=== PATIENT | female | born 2000 | race Caucasian/White ===

== ENCOUNTER 2022-10-13 01:01 | Observation (INO) | payer MEDICAID, SELFPAY ==
[2022-10-13 00:27] VITALS: BP 111/69; PULSE 82; TEMP 35.7
[2022-10-13 00:47] LABS: Bilirubin Urine NEGATIVE (NEGATIVE); Blood Urine NEGATIVE (NEGATIVE); Clarity Urine CLEAR (CLEAR); Color Urine YELLOW (YELLOW); Glucose Urine UA NEGATIVE (NEGATIVE); Ketones Urine NEGATIVE (NEGATIVE); Leukocyte Esterase Urine TRACE (NEGATIVE); Nitrite Urine NEGATIVE (NEGATIVE); Protein Urine NEGATIVE (NEG/TRACE); Specific Gravity Urine 1.015 (1.005-1.025); pH Urine 6.5 (5.0-9.0)
[2022-10-13 00:52] LABS: Urine Microscopic Indicated YES
[2022-10-13 01:19] LABS: Bacteria Urine TRACE #/HPF (NONE SEEN); Mucus Urine NONE SEEN (NONE SEEN); RBC Urine 0-2 #/HPF (0-2); WBC Urine 0-2 #/HPF (NONE SEEN)
[2022-10-13 01:20] LABS: Cast Seen? NONE SEEN #/LPF (NONE SEEN); Crystals Seen? None Seen #/HPF (None Seen); Squamous Epithelial Cell Urine FEW #/LPF (NONE/RARE); Urine Culture Indicated NO
[2022-10-13 02:52] LABS: Basophils Absolute Auto 0.1 10^3/uL (0.0-0.1); Basophils Percent Auto 0.3 % (0.2-2.0); Eosinophils Absolute Auto 0.1 10^3/uL (0.0-0.7); Eosinophils Percent Auto 0.4 % (0.9-7.0); Hematocrit 29.4 % (36.0-48.0); Hemoglobin 9.9 g/dL (12.0-16.0); Immature Granulocytes Abs Auto 0.28 10^3/uL (0.00-0.03); Immature Granulocytes Pct Auto 1.5 % (0.0-0.5); Lymphocytes Absolute Auto 2.4 10^3/uL (1.2-3.8); Lymphocytes Percent Auto 13.2 % (20.5-60.0); Mean Corpuscular HGB Conc 33.7 g/dL (29.9-35.2); Mean Corpuscular Hemoglobin 27.9 pg (26.7-34.0); Mean Corpuscular Volume 82.8 fL (81.0-99.0); Mean Platelet Volume 9.7 fL (9.5-13.5); Monocytes Absolute Auto 1.3 10^3/uL (0.3-0.8); Monocytes Percent Auto 6.8 % (1.7-12.0); Neutrophils Absolute Auto 14.4 10^3/uL (1.4-6.5); Neutrophils Percent Auto 77.8 % (43.0-75.0); Platelet Count 179 10^3/uL (150-450); Red Blood Count 3.55 10^6/uL (4.20-5.40); White Blood Count 18.5 10^3/uL (4.0-11.0)
[2022-10-13] MEDS: 0.9 % SODIUM CHLORIDE 1,000 ML 125 ML IV (03:01)
[2022-10-13 03:08] VITALS: BP 122/57; PULSE 78
--- NOTE | 2022-10-13 07:42 | W.PC.ACHO ---
Registration Status: ADM BLANKA Primary Language: Preferred Language: Active Medications Generic Name Dose Route Start Last Admin Trade Name Freq PRN Reason Stop Dose Admin Cefazolin Sodium/Dextrose 1 gm 10/13/22 04:45 10/13/22 04:54 Cefazolin Sodium/Dextrose 1 Gm/50 Ml Iv.Soln IV 1 gm Q8H JHOAN Administration Sodium Chloride 1,000 mls @ 125 mls/hr 10/13/22 02:30 10/13/22 03:01 Sodium Chloride 0.9% 1,000 Ml IV 125 mls/hr .Q8H JHOAN Administration IV Insertion/Site Date of IV Line Insertion [ 10/13/22 left Forearm] IV Insertion Time [left 02:45 Forearm]
[2022-10-13 09:40] VITALS: BP 102/60; PULSE 75
--- NOTE | 2022-10-13 10:41 | US_ITS ---
[address] [address] Patient Name: DAREN BYNUM MRN: [id number] date: 2000 Sex: F Assigned Patient Location: [facility] Current Patient Location: [facility] Accession/Order Number: [id number] Exam Date: 10/13/2022 12:15 Report Date: 10/13/2022 13:14 At the request of: FELIX ZULUAGA Procedure: US appendix PROCEDURE: US OB cervical length, US appendix, 10/13/2022 12:15 PM EDT CLINICAL INDICATIONS: Right lower quadrant abdominal pain, third trimester 2 para 1 Expected gestational age: 34 weeks 3 days Expected TABBY: 11/21/2322 COMPARISON: 07/07/2022 TECHNIQUE: Limited right lower quadrant abdominal sonogram, grayscale and color assessment. Limited transabdominal evaluation of and third trimester, transvaginal evaluation of cervix in . FINDINGS: LIMITED TRANSABDOMINAL THIRD TRIMESTER OBSTETRIC SONOGRAM, TRANSVAGINAL EVALUATION OF CERVIX IN : Single living intrauterine identified, cephalic presentation. body, cardiac activity is noted. Heart rate 151 bpm. 4.8 cm transvaginal cervical length, closed. There is no sign of placenta previa. Paracervical varices are considered. These measure up to 1.0 cm. Placenta is not evaluated. No sign of placenta previa is demonstrated. biometry: Not performed. anatomic assessment: Not performed. Amniotic fluid index is not evaluated. RIGHT LOWER QUADRANT SONOGRAM: Targeted imaging was performed in the right lower quadrant with graded compression. Tubular fluid-filled structure typical of acute appendicitis is not demonstrated. Prominent pelvic vascularity is in part related to the or mild pelvic varices. No free fluid. IMPRESSION: 1. Single living intrauterine , cephalic presentation 2. 4.8 cm transvaginal cervical length, closed 3. No sign of placenta previa 4. Prominent paracervical and pelvic vascularity in part related to and/or pelvic varices. 5. No sonographic finding typical of acute appendicitis. No free fluid is evident. Electronically authenticated by: YUDITH CHO Date: 10/13/2022 13:14
--- NOTE | 2022-10-13 10:58 | PM.OBPN ---
OB - PN: Subj Subjective Narrative: , IUP 34w3d , h/o c/section, presented last night with lower abd pain, R>L, sx of UTI improved, no pain this morning FHR R will get an US for appendix, h/o IUGR, gettinh NSTs, next appt at [facility] on 10/16/22. d/c home on keflex. Exam Narrative Exam Narrative: General exam was normal, heart regular rate and rhythm, lungs clear to auscultation. Abdomen soft, nontender, Uterus is soft, nontender. Lochia normal. Neuro and psychiatric exam and normal. Constitutional Vital Signs - 24 hr 10/13/22 00:27 10/13/22 03:08 10/13/22 09:40 Temperature 96.3 F L Pulse Rate 82 78 75 Blood Pressure 111/69 122/57 H 102/60 Results Labs Labs: Short CBC 10/13/22 Range/Units 02:47 WBC 18.5 H (4.0-11.0) 10^3/uL Hgb 9.9 L (12.0-16.0) g/dL Hct 29.4 L (36.0-48.0) % Plt Count 179 (150-450) 10^3/uL Urine 10/13/22 Range/Units 00:30 Urine Color Yellow (YELLOW) Urine Clarity Clear (CLEAR) Urine pH 6.5 (5.0-9.0) Ur Specific [employer] 1.015 (1.005-1.025) Urine Protein Negative (NEG/TRACE) mg/dL Urine Glucose (UA) Negative (NEGATIVE) mg/dL OB - PN: A/P Assessment and Plan (1) UTI (urinary tract infection): Plan . thirty-one weeks. Urinary tract infection. Cervical length ultrasound was normal. Appendix was not visualized. Patient is discharged home with prescription for Keflex. Time Spent with Patient Time: Total time spent is greater than 50% in coordination of care (as documented) at patient's floor/unit and/or counseling patient: Total time spent with greater than 50% in coordination of care (as documented) at patient's floor/unit and/or counseling patient: less than 15 minutes
--- NOTE | 2022-10-13 11:04 | US_ITS ---
[place] [id number] Patient Name: DAREN BYNUM MRN: [id number] date: 2000 Sex: F Assigned Patient Location: [facility] Current Patient Location: [facility] Accession/Order Number: [id number] Exam Date: 10/13/2022 12:15 Report Date: 10/13/2022 13:14 At the request of: FELIX ZULUAGA Procedure: US OB cervical length PROCEDURE: US OB cervical length, US appendix, 10/13/2022 12:15 PM EDT CLINICAL INDICATIONS: Right lower quadrant abdominal pain, third trimester 2 para 1 Expected gestational age: 34 weeks 3 days Expected TABBY: 11/21/2322 COMPARISON: 07/07/2022 TECHNIQUE: Limited right lower quadrant abdominal sonogram, grayscale and color assessment. Limited transabdominal evaluation of and third trimester, transvaginal evaluation of cervix in . FINDINGS: LIMITED TRANSABDOMINAL THIRD TRIMESTER OBSTETRIC SONOGRAM, TRANSVAGINAL EVALUATION OF CERVIX IN : Single living intrauterine identified, cephalic presentation. body, cardiac activity is noted. Heart rate 151 bpm. 4.8 cm transvaginal cervical length, closed. There is no sign of placenta previa. Paracervical varices are considered. These measure up to 1.0 cm. Placenta is not evaluated. No sign of placenta previa is demonstrated. biometry: Not performed. anatomic assessment: Not performed. Amniotic fluid index is not evaluated. RIGHT LOWER QUADRANT SONOGRAM: Targeted imaging was performed in the right lower quadrant with graded compression. Tubular fluid-filled structure typical of acute appendicitis is not demonstrated. Prominent pelvic vascularity is in part related to the or mild pelvic varices. No free fluid. IMPRESSION: 1. Single living intrauterine , cephalic presentation 2. 4.8 cm transvaginal cervical length, closed 3. No sign of placenta previa 4. Prominent paracervical and pelvic vascularity in part related to and/or pelvic varices. 5. No sonographic finding typical of acute appendicitis. No free fluid is evident. Electronically authenticated by: YUDITH CHO Date: 10/13/2022 13:14
== END 2022-10-13 13:42 | disposition home or self-care (01) ==
LOC: FBC 15:45 → FBCO 16:36 → FBC 11-10 13:41
PROVIDERS: Admitting Provider Obstetrics & Gynecology; Visit Provider Obstetrics & Gynecology
DX: O23.43 Unspecified infection of urinary tract in pregnancy, third trimester (principal); N39.0 Urinary tract infection, site not specified; O34.219 Maternal care for unspecified type scar from previous cesarean delivery; Z3A.34 34 weeks gestation of pregnancy
CPT/HCPCS: 36415; 76705; 76817; 81003; 81015; 85025; 96374; 96376; G0378; G0379

== ENCOUNTER 2022-11-11 05:45 | Inpatient (IN) | payer MEDICAID, SELFPAY ==
[2022-11-11] VITALS (52 sets, daily range): BP systolic 75–132; BP diastolic 51–89; PULSE 64–71; RESP 16–20; TEMP 36.3–37.1
[2022-11-11 06:29] LABS: Basophils Absolute Auto 0.1 10^3/uL (0.0-0.1); Basophils Percent Auto 0.4 % (0.2-2.0); Eosinophils Absolute Auto 0.1 10^3/uL (0.0-0.7); Eosinophils Percent Auto 0.9 % (0.9-7.0); Hematocrit 29.8 % (36.0-48.0); Hemoglobin 9.7 g/dL (12.0-16.0); Immature Granulocytes Pct Auto 0.8 % (0.0-0.5); Lymphocytes Absolute Auto 2.6 10^3/uL (1.2-3.8); Lymphocytes Percent Auto 21.5 % (20.5-60.0); Mean Corpuscular HGB Conc 32.6 g/dL (29.9-35.2); Mean Corpuscular Hemoglobin 24.9 pg (26.7-34.0); Mean Corpuscular Volume 76.4 fL (81.0-99.0); Mean Platelet Volume 10.1 fL (9.5-13.5); Monocytes Absolute Auto 0.9 10^3/uL (0.3-0.8); Monocytes Percent Auto 7.4 % (1.7-12.0); Neutrophils Absolute Auto 8.5 10^3/uL (1.4-6.5); Platelet Count 190 10^3/uL (150-450); Red Cell Distribution Width 13.8 % (11.0-15.0); White Blood Count 12.3 10^3/uL (4.0-11.0)
[2022-11-11] MEDS: LACTATED RINGER'S SOLUTION 1,000 ML 1000 ML IV ×2 (06:51→06:56)
[2022-11-11] MEDS: CITRIC ACID/SODIUM CITRATE 30 ML SOLUTION PO (06:51)
[2022-11-11] MEDS: CEFAZOLIN SODIUM/DEXTROSE 2 GM/50 ML PIGGYBACK IV (06:53)
[2022-11-11 06:54] LABS: Amphetamine Screen Urine NEGATIVE (NEGATIVE); Barbiturates Screen Urine NEGATIVE (NEGATIVE); Benzodiazepines Screen Urine NEGATIVE (NEGATIVE); Buprenorphine Screen Urine NEGATIVE (NEGATIVE); Cannabinoid Screen Urine NEGATIVE (NEGATIVE); Cocaine Screen Urine NEGATIVE (NEGATIVE); Methadone Screen Urine NEGATIVE (NEGATIVE); Methamphetamines Screen Urine NEGATIVE (NEGATIVE); Opiate Screen Urine NEGATIVE (NEGATIVE); Oxycodone Screen Urine NEGATIVE (NEGATIVE); Phencyclidine Screen Urine NEGATIVE (NEGATIVE); Tricyclic Antidepressant Urine NEGATIVE (NEGATIVE)
--- NOTE | 2022-11-11 07:20 | P.OBHP_ITS ---
OB - H&P: HPI History of Present Illness Chief complaint: C SECTION : 2 Para: 1 Gestational age based on last menstrual period: 38.4 Indications for induction: repeat section and other (IUGR ) History of Present Dating criteria: LMP confirmed by 1st trimester US care: good care Ultrasounds: normal mid trimester US complications comment: IUGR, saw MFM Labs Rubella: immune RPR/VDLR: nonreactive GBS status: negative HBsAG: negative Review of Systems ROS Status of ROS 10 or more systems reviewed and unremarkable except as noted in history and below [facility] Medical History (Updated 11/11/22 @ 07:30 by DARIA ESCOBEDO APRN, HAILEE) Social History (Updated 11/11/22 @ 06:15 by Sanket Brasher) Within the past year, how often did you have a drink containing alcohol: never Within the past year, how often did you have six or more drinks on one occasion: never Score interpretation: A score less than 3 is consistent with normal alcohol consumption. Smoking status: Never smoker Non-prescribed substance use: denies use Highest level of school completed/degree received: 11th grade Are you now , , , , never or living with a partner: living with partner In a typical week, how many times do you talk on the telephone with family, friends, or neighbors: 3 or more times per week How often do you get together with friends or relatives: once per week How often do you attend hinduism or jehovah's witness services: never Do you belong to any clubs or organizations such as hinduism groups unions, fraternal or athletic groups, or school groups: no Total score: 2 Score interpretation: A score of greater than or equal to 2 indicates the lowest level of social isolation. Little interest or pleasure in doing things: not at all Feeling down, depressed, or hopeless: not at all Feel stressed/tense/nervous/anxious/difficulty sleeping: not at all Do you think of yourself as: straight/heterosexual Gender Identity: female Meds Home Medications and Allergies Home Medications Medication Instructions Recorded Confirmed Type [id number] 1 mg tab PO 10/13/22 History tablet Allergies Allergy/AdvReac Type Severity Reaction Status Date / Time No Known Drug Allergies Allergy Verified 11/11/22 06:15 Exam Constitutional Vital Signs, click to edit/add: Last Vital Signs Temp 97.4 F L 11/11/22 06:22 Pulse 71 11/11/22 06:16 Resp 16 11/11/22 06:16 BP 123/83 H 11/11/22 06:16 Common normals: no apparent distress General appearance: cooperative and comfortable HENMT Common normals: normocephalic Eye Common normals: PERRL Respiratory Common normals: normal respiratory effort Auscultation: clear to auscultation bilaterally Cardio Common normals: no JVD, regular rate and regular rhythm Rate: regular rate Rhythm: regular rhythm GI Common normals: Normal to inspection, nondistended, normoactive bowel sounds p resent Palpation: soft Common normals: no CVA tenderness Back & Pelvis Thoracic spine/upper back: normal to inspection Extremity Common normals: normal to inspection Neuro Common normals: oriented x3 Sensorium/orientation: awake, alert, oriented to person, oriented to place and oriented to time Psych Attitude: calm Results Labs Labs: Short CBC 11/11/22 Range/Units 06:10 WBC 12.3 H (4.0-11.0) 10^3/uL Hgb 9.7 L (12.0-16.0) g/dL Hct 29.8 L (36.0-48.0) % Plt Count 190 (150-450) 10^3/uL OB - A/P Assessment and Plan (1) Term : Plan repeat section
--- NOTE | 2022-11-11 07:44 | W.PC.ACHO ---
Registration Status: ADM IN Primary Language: Zambian Preferred Language: Zambian report given to Heather Ware RN Active Medications Generic Name Dose Route Start Last Admin Trade Name Freq PRN Reason Stop Dose Admin Lactated Ringer's 1,000 mls @ 125 mls/hr 11/11/22 06:00 Lactated Ringers IV .Q8H JHOAN Lactated Ringer's 1,000 mls @ 1,000 mls/hr 11/11/22 06:00 11/11/22 06:56 Lactated Ringers IV 11/11/22 07:59 1,000 mls/hr .Q1H JHOAN Administration Oxytocin 20 unit/ Sodium 1,002 mls @ 125 mls/hr 11/11/22 06:00 Chloride IV 11/11/22 13:59 Q8H JHOAN Protocol Diet Category Date Time Status NPO Diet Diet 11/11/22 00:01 Active Consults Category Date Time Status Consult to Anesthesiology Routine Cons 11/11/22 Ordered IV Insertion/Site Date of IV Line Insertion [18g 11/11/22 left Wrist] IV Insertion Time [18g left 06:10 Wrist] Neurology Patient orientation (short person,place,time,situation list) [place] coma scale total score 15 Catheter Urinary Catheter Date of 11/11/22 Insertion [Urethral] Urinary Catheter Date of 11/11/22 Insertion [Urethral] Urinary Catheter Time of 06:55 Insertion [Urethral]
[2022-11-11] MEDS: LACTATED RINGER'S SOLUTION 1,000 ML 125 ML IV (07:57)
--- NOTE | 2022-11-11 08:21 | PM.ONB ---
Brief Operative Note Date of procedure: 11/11/22 Pre-op diagnosis: iup at 38 3/7wks, previous c/s, iugr Post-op diagnosis: same Procedure: NAME OF PROCEDURE: [ section ] PROCEDURE: Patient was taken back to the Operating Room where she was given a spinal anesthesia with Duramorph without difficulty. She was prepped and draped in the normal sterile fashion. A Pfannenstiel skin incision was then made 2 cm above the symphysis pubis and carried down to underlying rectus fascia using a Bovie. The fascia was incised in the midline and extended laterally using Adames scissors. Two Oneyda clamps were placed on the superior aspect of the fascia and dissected off the underlying rectus muscles. The same was performed on the inferior aspect as well. The muscles were then in the midline. Peritoneum was identified and entered bluntly. The peritoneum was then extended superiorly and inferiorly with good visualization of the bladder. The bladder blade was inserted. A low transverse incision was made on the patient's uterus and extended laterally digitally. The infant was then delivered atraumatically after the bladder blade was removed in the cephalic position. The cord was clamped and cut. Cord blood was obtained. The was handed off to awaiting team. The patient's placenta was spontaneously delivered. The uterus was then exteriorized. The uterus was cleared of all clots and debris. The bladder blade was reinserted. The patient's uterine incision was closed using #0 Vicryl in a running lock fashion. Excellent hemostasis was assured. The uterus was then returned to the patient's abdomen. The patient's abdomen was copiously irrigated using warm saline. Peritoneal gutters were cleared of all clots and debris. Again excellent hemostasis was assured. The patient's peritoneum was closed using 3-0 Vicryl in a running fashion. The patient's fascia was closed using #0 Vicryl in a running fashion. The patient's skin was closed using 4-0 Vicryl subcuticularly. The patient tolerated the procedure well. Sponge, lap, and needle counts were correct x2. The patient was taken to the Recovery Room in stable condition. Anesthesia: spinal Surgeon: Gilbert Alexander National Sales Consultant: DARIA ESCOBEDO Estimated blood loss (mL): 575 Pathology: other (placenta) Condition: stable Disposition: floor
--- NOTE | 2022-11-11 08:23 | PM.OBPRCCS ---
Procedure Pre-op/Post-op diagnoses: Pre-Op/Post-Op Diagnoses Operation Date: 11/11/22 07:30 <No data on this case meets the specified criteria> Procedure: Procedures Operation Date: 11/11/22 07:30 Actual Procedure Side Surgeon p Repeat Not Applicable Gilbert Alexander DO Applications Engineer Manufacturing: Gilbert Alexander Estimated blood loss (mL): 575 Disposition: floor Anesthesia type: Spinal
[2022-11-11] MEDS: 0.9 % SODIUM CHLORIDE 1,000 ML 75 ML IV (08:30)
--- NOTE | 2022-11-11 08:49 | PM.OBPN ---
OB - PN: Subj Subjective Narrative: supply assistant note: I first assisted Dr. Alexander with the repeat section. I independently closed the incision with 4-0 vicryl on a Naun needle. Hemostasis noted at completion. Patient tolerated procedure well. Exam Constitutional Vital Signs, click to edit/add: Last Vital Signs Temp 97.4 F L 11/11/22 06:22 Pulse 71 11/11/22 06:16 Resp 16 11/11/22 06:16 BP 123/83 H 11/11/22 06:16 Results Labs Labs: Short CBC 11/11/22 Range/Units 06:10 WBC 12.3 H (4.0-11.0) 10^3/uL Hgb 9.7 L (12.0-16.0) g/dL Hct 29.8 L (36.0-48.0) % Plt Count 190 (150-450) 10^3/uL OB - PN: A/P Assessment and Plan (1) Term : Time Spent with Patient Time: Total time spent is greater than 50% in coordination of care (as documented) at patient's floor/unit and/or counseling patient: Total time spent with greater than 50% in coordination of care (as documented) at patient's floor/unit and/or counseling patient: less than 15 minutes
[2022-11-11] MEDS: KETOROLAC TROMETHAMINE 30 MG/ML VIAL IVP ×3 (11:44→23:48)
[2022-11-11 13:11] LABS: Basophils Percent Auto 0.2 % (0.2-2.0); Eosinophils Absolute Auto 0.1 10^3/uL (0.0-0.7); Eosinophils Percent Auto 0.5 % (0.9-7.0); Hematocrit 28.5 % (36.0-48.0); Hemoglobin 8.9 g/dL (12.0-16.0); Immature Granulocytes Abs Auto 0.11 10^3/uL (0.00-0.03); Immature Granulocytes Pct Auto 0.7 % (0.0-0.5); Lymphocytes Percent Auto 12.7 % (20.5-60.0); Mean Corpuscular HGB Conc 31.2 g/dL (29.9-35.2); Mean Corpuscular Hemoglobin 24.3 pg (26.7-34.0); Mean Corpuscular Volume 77.9 fL (81.0-99.0); Mean Platelet Volume 9.5 fL (9.5-13.5); Monocytes Percent Auto 6.3 % (1.7-12.0); Neutrophils Absolute Auto 12.8 10^3/uL (1.4-6.5); Neutrophils Percent Auto 79.6 % (43.0-75.0); Platelet Count 158 10^3/uL (150-450); Red Blood Count 3.66 10^6/uL (4.20-5.40); Red Cell Distribution Width 13.8 % (11.0-15.0); White Blood Count 16.1 10^3/uL (4.0-11.0)
[2022-11-11] MEDS: CEFAZOLIN SODIUM/DEXTROSE,ISO 1 GM/50 ML IV.SOLN IV (13:35)
--- NOTE | 2022-11-11 19:17 | W.PC.ACHO ---
Registration Status: ADM IN Primary Language: Belarusian Preferred Language: Belarusian Report given to Paty Brasher RN. Care relinquished. Active Medications Generic Name Dose Route Start Last Admin Trade Name Freq PRN Reason Stop Dose Admin Al Hydroxide/Mg Hydroxide 2,400 mg 11/11/22 08:23 Magnesium Hydroxide 2,400 Mg/10 Ml Oral.Susp PO Q6H PRN Dyspepsia Diphenhydramine HCl 25 mg 11/11/22 08:23 Diphenhydramine Hcl 50 Mg/Ml (1ml) Vial IV 11/12/22 08:24 Q6H PRN Itching Docusate Sodium 100 mg 11/12/22 09:00 Docusate Sodium 100 Mg Capsule PO BID JHOAN Lactated Ringer's 1,000 mls @ 125 mls/hr 11/11/22 06:00 11/11/22 07:57 Lactated Ringers IV 125 mls/hr .Q8H JHOAN Administration Sodium Chloride 1,000 mls @ 125 mls/hr 11/11/22 08:30 Sodium Chloride 0.9% 1,000 Ml IV .Q8H JHOAN Sodium Chloride 1,000 mls @ 75 mls/hr 11/11/22 08:30 11/11/22 08:30 Sodium Chloride 0.9% 1,000 Ml IV 75 mls/hr .[id number] JHOAN Administration Ibuprofen 800 mg 11/11/22 08:23 Ibuprofen 400 Mg Tablet PO Q8H PRN Pain Ketorolac Tromethamine 30 mg 11/11/22 08:23 11/11/22 17:56 Ketorolac Tromethamine 30 Mg/Ml Vial IVP 11/13/22 08:24 30 mg Q6H PRN Administration Pain Nalbuphine HCl 10 mg 11/11/22 08:23 Nalbuphine Hcl 10 Mg/Ml Ampule IV 11/12/22 08:24 Q3H PRN Itching Ondansetron HCl 4 mg 11/11/22 08:23 Ondansetron Pf 4 Mg/2 Ml Vial IV Q6H PRN Nausea And Vomiting Ondansetron HCl 4 mg 11/11/22 08:23 Ondansetron 4 Mg Rapdis Tablet PO Q6H PRN Nausea And Vomiting Oxycodone/Acetaminophen 2 each 11/11/22 08:23 Oxycodone Hcl/Acetaminophen 5-325 Mg Tablet PO Q4H PRN Pain Oxycodone/Acetaminophen 1 each 11/11/22 08:23 Oxycodone Hcl/Acetaminophen 5-325 Mg Tablet PO Q4H PRN Pain Senna 17.2 mg 11/11/22 20:00 Sennosides 8.6 Mg Tablet PO QHS PRN Constipation Simethicone 80 mg 11/11/22 08:23 Simethicone 80 Mg Tab.Chew PO QID PRN Abdominal Distention Diet Category Date Time Status Regular Consistency Diet Diet 11/11/22 Dinner Active Consults Category Date Time Status Consult to Anesthesiology Routine Cons 11/11/22 Ordered IV Insertion/Site Date of IV Line Insertion [18g 11/11/22 left Wrist] IV Insertion Time [18g left 06:10 Wrist] Neurology Patient orientation (short person,place,time,situation list) [place] coma scale total score 15 Respiratory Lung sounds [Throughout] clear Lung sounds [Throughout] clear Lung sounds [Throughout] clear Oxygen Delivery Method Room Air Catheter Urinary Catheter Date of 11/11/22 Insertion [Urethral] Urinary Catheter Date of 11/11/22 Insertion [Urethral] Urinary Catheter Time of 06:55 Insertion [Urethral]
[2022-11-12] VITALS (8 sets, daily range): BP systolic 89–108; BP diastolic 46–55; PULSE 62–78; RESP 14–16; TEMP 36.6–37.3
[2022-11-12] MEDS: KETOROLAC TROMETHAMINE 30 MG/ML VIAL IVP ×3 (06:21→20:40)
[2022-11-12 06:40] LABS: Basophils Percent Auto 0.3 % (0.2-2.0); Eosinophils Absolute Auto 0.1 10^3/uL (0.0-0.7); Hematocrit 24.9 % (36.0-48.0); Hemoglobin 8.1 g/dL (12.0-16.0); Immature Granulocytes Abs Auto 0.07 10^3/uL (0.00-0.03); Immature Granulocytes Pct Auto 0.6 % (0.0-0.5); Lymphocytes Absolute Auto 2.4 10^3/uL (1.2-3.8); Lymphocytes Percent Auto 21.2 % (20.5-60.0); Mean Corpuscular HGB Conc 32.5 g/dL (29.9-35.2); Mean Corpuscular Hemoglobin 24.9 pg (26.7-34.0); Mean Corpuscular Volume 76.6 fL (81.0-99.0); Mean Platelet Volume 10.2 fL (9.5-13.5); Monocytes Absolute Auto 0.9 10^3/uL (0.3-0.8); Neutrophils Absolute Auto 7.7 10^3/uL (1.4-6.5); Neutrophils Percent Auto 68.9 % (43.0-75.0); Platelet Count 149 10^3/uL (150-450); Red Blood Count 3.25 10^6/uL (4.20-5.40); Red Cell Distribution Width 13.8 % (11.0-15.0); White Blood Count 11.1 10^3/uL (4.0-11.0)
--- NOTE | 2022-11-12 07:26 | W.PC.ACHO ---
Registration Status: ADM IN Primary Language: Emirati Preferred Language: Emirati Active Medications Generic Name Dose Route Start Last Admin Trade Name Freq PRN Reason Stop Dose Admin Al Hydroxide/Mg Hydroxide 2,400 mg 11/11/22 08:23 Magnesium Hydroxide 2,400 Mg/10 Ml Oral.Susp PO Q6H PRN Dyspepsia Diphenhydramine HCl 25 mg 11/11/22 08:23 Diphenhydramine Hcl 50 Mg/Ml (1ml) Vial IV 11/12/22 08:24 Q6H PRN Itching Docusate Sodium 100 mg 11/12/22 09:00 Docusate Sodium 100 Mg Capsule PO BID JHOAN Lactated Ringer's 1,000 mls @ 125 mls/hr 11/11/22 06:00 11/11/22 07:57 Lactated Ringers IV 125 mls/hr .Q8H JHOAN Administration Sodium Chloride 1,000 mls @ 125 mls/hr 11/11/22 08:30 Sodium Chloride 0.9% 1,000 Ml IV .Q8H JHOAN Sodium Chloride 1,000 mls @ 75 mls/hr 11/11/22 08:30 11/11/22 08:30 Sodium Chloride 0.9% 1,000 Ml IV 75 mls/hr .[id number] JHOAN Administration Ibuprofen 800 mg 11/11/22 08:23 Ibuprofen 400 Mg Tablet PO Q8H PRN Pain Ketorolac Tromethamine 30 mg 11/11/22 08:23 11/12/22 06:21 Ketorolac Tromethamine 30 Mg/Ml Vial IVP 11/13/22 08:24 30 mg Q6H PRN Administration Pain Nalbuphine HCl 10 mg 11/11/22 08:23 Nalbuphine Hcl 10 Mg/Ml Ampule IV 11/12/22 08:24 Q3H PRN Itching Ondansetron HCl 4 mg 11/11/22 08:23 Ondansetron Pf 4 Mg/2 Ml Vial IV Q6H PRN Nausea And Vomiting Ondansetron HCl 4 mg 11/11/22 08:23 Ondansetron 4 Mg Rapdis Tablet PO Q6H PRN Nausea And Vomiting Oxycodone/Acetaminophen 2 each 11/11/22 08:23 Oxycodone Hcl/Acetaminophen 5-325 Mg Tablet PO Q4H PRN Pain Oxycodone/Acetaminophen 1 each 11/11/22 08:23 Oxycodone Hcl/Acetaminophen 5-325 Mg Tablet PO Q4H PRN Pain Senna 17.2 mg 11/11/22 20:00 Sennosides 8.6 Mg Tablet PO QHS PRN Constipation Simethicone 80 mg 11/11/22 08:23 Simethicone 80 Mg Tab.Chew PO QID PRN Abdominal Distention Diet Category Date Time Status Regular Consistency Diet Diet 11/11/22 Dinner Active Respiratory Lung sounds [Throughout] clear Lung sounds [Throughout] clear Lung sounds [Throughout] clear Oxygen Delivery Method Room Air
--- NOTE | 2022-11-12 08:12 | P.OBPN_ITS ---
OB - PN: Subj Subjective Patient comments: no complaints and pain well controlled [place] status: doing well Exam Constitutional Vital Signs, click to edit/add: Last Vital Signs Temp 98.2 F 11/12/22 03:30 Pulse 74 11/12/22 08:05 Resp 14 11/12/22 03:30 BP 93/50 L 11/12/22 08:05 O2 Del Method Room Air 11/11/22 08:56 Documenting provider has reviewed patient's vital signs: yes Common normals: no apparent distress Respiratory Common normals: normal respiratory effort and clear to auscultation bilaterally Cardio Common normals: regular rate and regular rhythm GI Common normals: Normal to inspection, nondistended, normoactive bowel sounds present Extremity Common normals: no clubbing, cyanosis or edema and no calf tenderness Results Labs Labs: Short CBC 11/11/22 11/12/22 Range/Units 12:54 06:25 WBC 16.1 H 11.1 H (4.0-11.0) 10^3/uL Hgb 8.9 L 8.1 L (12.0-16.0) g/dL Hct 28.5 L 24.9 L (36.0-48.0) % Plt Count 158 149 L (150-450) 10^3/uL OB - PN: A/P Assessment and Plan (1) Term : Plan - day: 1 Plan: routine postop care Time Spent with Patient Time: Total time spent is greater than 50% in coordination of care (as documented) at patient's floor/unit and/or counseling patient: Total time spent with greater than 50% in coordination of care (as documented) at patient's floor/unit and/or counseling patient: less than 15 minutes
[2022-11-12] MEDS: DOCUSATE SODIUM 100 MG CAPSULE PO ×2 (10:20→20:40)
--- NOTE | 2022-11-12 19:09 | W.PC.ACHO ---
Registration Status: ADM IN Primary Language: Indian Preferred Language: Indian Active Medications Generic Name Dose Route Start Last Admin Trade Name Freq PRN Reason Stop Dose Admin Al Hydroxide/Mg Hydroxide 2,400 mg 11/11/22 08:23 Magnesium Hydroxide 2,400 Mg/10 Ml Oral.Susp PO Q6H PRN Dyspepsia Docusate Sodium 100 mg 11/12/22 09:00 11/12/22 10:20 Docusate Sodium 100 Mg Capsule PO 100 mg BID JHOAN Administration Lactated Ringer's 1,000 mls @ 125 mls/hr 11/11/22 06:00 11/11/22 07:57 Lactated Ringers IV 125 mls/hr .Q8H JHOAN Administration Sodium Chloride 1,000 mls @ 125 mls/hr 11/11/22 08:30 Sodium Chloride 0.9% 1,000 Ml IV .Q8H JHOAN Sodium Chloride 1,000 mls @ 75 mls/hr 11/11/22 08:30 11/11/22 08:30 Sodium Chloride 0.9% 1,000 Ml IV 75 mls/hr .[id number] JHOAN Administration Ibuprofen 800 mg 11/11/22 08:23 Ibuprofen 400 Mg Tablet PO Q8H PRN Pain Ketorolac Tromethamine 30 mg 11/11/22 08:23 11/12/22 14:36 Ketorolac Tromethamine 30 Mg/Ml Vial IVP 11/13/22 08:24 30 mg Q6H PRN Administration Pain Ondansetron HCl 4 mg 11/11/22 08:23 Ondansetron Pf 4 Mg/2 Ml Vial IV Q6H PRN Nausea And Vomiting Ondansetron HCl 4 mg 11/11/22 08:23 Ondansetron 4 Mg Rapdis Tablet PO Q6H PRN Nausea And Vomiting Oxycodone/Acetaminophen 2 each 11/11/22 08:23 Oxycodone Hcl/Acetaminophen 5-325 Mg Tablet PO Q4H PRN Pain Oxycodone/Acetaminophen 1 each 11/11/22 08:23 Oxycodone Hcl/Acetaminophen 5-325 Mg Tablet PO Q4H PRN Pain Senna 17.2 mg 11/11/22 20:00 Sennosides 8.6 Mg Tablet PO QHS PRN Constipation Simethicone 80 mg 11/11/22 08:23 Simethicone 80 Mg Tab.Chew PO QID PRN Abdominal Distention Respiratory Lung sounds [Throughout] clear Lung sounds [Throughout] clear
[2022-11-13] MEDS: KETOROLAC TROMETHAMINE 30 MG/ML VIAL IVP (03:01)
--- NOTE | 2022-11-13 07:42 | PM.OBPN ---
OB - PN: Subj Subjective Patient comments: no complaints and pain well controlled [place] status: doing well Exam Constitutional Vital Signs, click to edit/add: Last Vital Signs Temp 99.1 F 11/12/22 23:21 Pulse 70 11/12/22 23:21 Resp 16 11/12/22 23:21 BP 108/55 L 11/12/22 23:21 O2 Del Method Room Air 11/12/22 23:21 Documenting provider has reviewed patient's vital signs: yes Common normals: no apparent distress Respiratory Common normals: normal respiratory effort and clear to auscultation bilaterally Cardio Common normals: regular rate and regular rhythm GI Common normals: Normal to inspection, nondistended, normoactive bowel sounds present Extremity Common normals: normal to inspection, no clubbing, cyanosis or edema and no calf tenderness OB - PN: A/P Assessment and Plan (1) Term : Plan - day: 2 Plan: routine postop care, discharge home and follow up 6 weeks Time Spent with Patient Time: Total time spent is greater than 50% in coordination of care (as documented) at patient's floor/unit and/or counseling patient: Total time spent with greater than 50% in coordination of care (as documented) at patient's floor/unit and/or counseling patient: less than 15 minutes
[2022-11-13 07:43] VITALS: BP 115/58; PULSE 77
--- NOTE | 2022-11-13 07:43 | PM.OBDS ---
DS: Providers Provider Date of admission: 11/11/22 05:45 Primary care physician: Non-Staff Physician, Admitting clinician: Gilbert Alexander Attending physician on admission: Gilbert Alexander Consults: 11/11/22 Consult to Anesthesiology Routine Consulting Provider: Liseth Kent Attending physician on discharge: Gilbert Alexander Discharging clinician: Gilbert Alexander Anticipated date of discharge: 11/13/22 DS: Diagnosis Discharge Diagnosis (1) Term : Assessment and plan: s/p c/s po day 2-dc home, fu 1kw, rx on chart Plan see above OB - DS: Summary Peripartum Data - Procedures: Procedures Operation Date: 11/11/22 07:30 Actual Procedure Side Surgeon p Repeat Not Applicable Gilbert Alexander DO Peripartum Data - Vaginal Delivery Procedures: Procedures Operation Date: 11/11/22 07:30 Actual Procedure Side Surgeon p Repeat Not Applicable Gilbert Alexander DO Infant Delivery method: section Gender: male Discharge plan: home Time Spent with Patient Time attestation: Total time spent providing and/or coordinating discharge services: Time spent: less than 30 minutes Exam Constitutional Vital Signs, click to edit/add: Last Vital Signs Temp 99.1 F 11/12/22 23:21 Pulse 77 11/13/22 07:43 Resp 16 11/12/22 23:21 BP 115/58 L 11/13/22 07:43 O2 Del Method Room Air 11/12/22 23:21 Documenting provider has reviewed patient's vital signs: yes Common normals: no apparent distress, oriented x3 and alert Orientation/consciousness: Yes awake, Yes oriented to person, Yes oriented to place and Yes oriented to time HENMT Common normals: normocephalic Head and scalp: normocephalic Eye Common normals: PERRL Pupil: PERRL Neck & C-Spine Common normals: no JVD Respiratory Common normals: normal respiratory effort and clear to auscultation bilaterally Auscultation: clear to auscultation bilaterally Cardio Common normals: no JVD, regular rate and regular rhythm Rate: regular rate Rhythm: regular rhythm GI Common normals: Normal to inspection, nondistended, normoactive bowel sounds present and soft to palpation Palpation: soft Common normals: no CVA tenderness Bladder/kidney exam: no CVA tenderness Back & Pelvis Common normals: no CVA tenderness Thoracic spine/upper back: normal to inspection Extremity Common normals: normal to inspection, no clubbing, cyanosis or edema and no calf tenderness Neuro Common normals: oriented x3 Sensorium/orientation: awake, alert, oriented to person, oriented to place and oriented to time Discharge Plan Discharge Disposition: Home, Self-Care Discharge Medications: New ibuprofen 800 mg tablet 800 mg PO Q8H PRN (Reason: pain) 14 Days Qty: 40 0RF oxycodone-acetaminophen [Percocet] 5-325 mg tablet 1 tab PO Q6H PRN (Reason: pain) 7 Days Qty: 28 0RF Continued [id number]-[id number] 1 mg tablet 1 tab PO Forms: Delivery - Discharge, Portal Instructions Discharge Date/Time: 11/13/22 14:25
[2022-11-13 07:45] VITALS: RESP 16
[2022-11-13] MEDS: DOCUSATE SODIUM 100 MG CAPSULE PO (09:40)
[2022-11-13] MEDS: IBUPROFEN 400 MG TABLET 800 MG PO (09:43)
== END 2022-11-13 14:25 | disposition home or self-care (01) | DRG 540 ==
PROVIDERS: Admitting Provider Midwife; Visit Provider Obstetrics & Gynecology
PROC: 10D00Z1 Extraction of Products of Conception, Low, Open Approach (ICD-10-PCS; CPT 59514; principal; 2022-11-11 07:30)
DX: O34.211 Maternal care for low transverse scar from previous cesarean delivery (principal); O36.5930 Maternal care for other known or suspected poor fetal growth, third trimester, not applicable or unspecified; Z3A.38 38 weeks gestation of pregnancy; Z37.0 Single live birth; Z79.899 Other long term (current) drug therapy
CPT/HCPCS: 36415; 59025; 80307; 85025; 86850; 86900; 86901; 88307; 94667; 96374; 96376

== ENCOUNTER 2024-04-03 13:15 | Emergency (ER) | payer SELFPAY ==
[2024-04-03 13:20] VITALS: BP 111/69; PULSE 87; TEMP 36.6; O2SAT 99; BMI 18.3
[2024-04-03] MEDS: ONDANSETRON PF 4 MG/2 ML VIAL IV (13:46)
[2024-04-03] MEDS: 0.9 % SODIUM CHLORIDE 1,000 ML 999 ML IV (13:46)
[2024-04-03 13:54] LABS: Hematocrit 37.1 % (36.0-48.0); Hemoglobin 12.3 g/dL (12.0-16.0); Mean Corpuscular HGB Conc 33.2 g/dL (29.9-35.2); Mean Corpuscular Hemoglobin 29.1 pg (26.7-34.0); Mean Corpuscular Volume 87.7 fL (81.0-99.0); Mean Platelet Volume 9.7 fL (9.5-13.5); Platelet Count 246 10^3/uL (150-450); Red Blood Count 4.23 10^6/uL (4.20-5.40); Red Cell Distribution Width 12.2 % (11.0-15.0); White Blood Count 13.1 10^3/uL (4.0-11.0)
[2024-04-03 14:08] LABS: Band Neutrophils Absolute 1.3 10^3/uL (0.0-0.3); Lymphocytes Absolute Manual 0.91 10^3/uL (1.20-3.80); Monocytes Absolute Manual 0.65 10^3/uL (0.30-0.80); Segmented Neut Absolute Manual 10.21 10^3/uL (1.4-6.5)
[2024-04-03 14:11] LABS: Alanine Aminotransferase 21 U/L (14-59); Albumin Globulin Ratio 0.7; Albumin Level 3.1 g/dL (3.4-5.0); Alkaline Phosphatase 79 U/L (46-116); Anion Gap 14.1; Aspartate Amino Transferase 21 U/L (15-37); BUN Creatinine Ratio 13.2; Bilirubin Total 1.9 mg/dL (0.2-1.0); Carbon Dioxide 24.4 mmol/L (21.0-32.0); Chloride 103 mmol/L (98-107); Estimated GFR (African America >60 (>=60 mL/min/1.73m^2); Estimated GFR (Non-African Ame >60 (>=60 mL/min/1.73m^2); Globulin 4.4 g/dL; Glucose 99 mg/dL (74-106); Potassium 3.5 mmol/L (3.5-5.1); Sodium 138 mmol/L (136-145); Total Protein 7.5 g/dL (6.4-8.2)
[2024-04-03] MEDS: FAMOTIDINE/PF 20 MG/2 ML VIAL IV (14:51)
[2024-04-03 15:43] VITALS: BP 110/60; PULSE 96; O2SAT 100
--- NOTE | 2024-04-03 18:01 | ED_ITS ---
HPI HPI - General Adult General Chief complaint: Abdominal Pain Stated complaint: BACK PAIN, VOMITING Time Seen by Provider: 04/03/24 13:23 Mode of arrival: walk-in Limitations: no limitations History of Present Illness HPI narrative: 23-year-old female to the emergency department chief complaint of abrupt onset of nausea, vomiting, diarrhea last evening. She reports has not been able to keep anything down today. She is currently 25 weeks . She denies any abdominal pain. No vaginal bleeding or discharge. Related Data Home Medications ?Medication ?Instructions ?Recorded ?Confirmed [id number] 1 mg 1 tab PO 10/13/22 tablet Previous Rx's ?Medication ?Instructions ?Recorded ibuprofen 800 mg tablet 800 mg PO Q8H PRN pain 14 days #40 11/13/22 tabs oxycodone-acetaminophen 5 mg-325 1 tab PO Q6H PRN pain 7 days #28 11/13/22 mg tablet (Percocet) tabs ondansetron 4 mg disintegrating 4 mg PO Q8H PRN nausea and 04/03/24 tablet vomiting 4 days #16 tabs Allergies Allergy/AdvReac Type Severity Reaction Status Date / Time No Known Drug Allergies Allergy Verified 04/03/24 13:22 Opioid HPI Opioid Management Most Recent Opioid Data: Last Pain Scale 0 11/13/22 04:26 11/13/22 Ur Phencyclidine Scrn Negative (NEGATIVE) 11/11/22 06:10 0709/09 Review of Systems ROS Status of ROS 10 or more systems reviewed and unremark able except as noted in history and below [facility] Medical History (Updated 04/03/24 @ 15:51 by Rio Ordoñez MD) History of blood transfusion ?Z92.89 - Personal history of other medical treatment (ICD-10) delivery delivered ?O82 - Encounter for delivery without indication (ICD-10) Social History (Updated 11/11/22 @ 06:15 by Sanket Brasher) Within the past year, how often did you have a drink containing alcohol: never Within the past year, how often did you have six or more drinks on one occasion: never Score interpretation: A score less than 3 is consistent with normal alcohol consumption. Smoking status: Never smoker Non-prescribed substance use: denies use Highest level of school completed/degree received: 11th grade Are you now , , , , never or living with a partner: living with partner In a typical week, how many times do you talk on the telephone with family, friends, or neighbors: 3 or more times per week How often do you get together with friends or relatives: once per week How often do you attend baptist or hindu services: never Do you belong to any clubs or organizations such as baptist groups unions, fraternal or athletic groups, or school groups: no Total score: 2 Score interpretation: A score of greater than or equal to 2 indicates the lowest level of social isolation. Little interest or pleasure in doing things: not at all Feeling down, depressed, or hopeless: not at all Feel stressed/tense/nervous/anxious/difficulty sleeping: not at all Do you think of yourself as: straight/heterosexual Gender Identity: female Exam Narrative Exam Narrative: VITALS: I have reviewed the triage vital signs. GENERAL: Well developed, well appearing adult in no acute distress. NEURO: Alert and oriented. Moves all extremities. Face is symmetric and expressive. EYES: PERRL. No scleral icterus or conjunctival injection. No discharge. HENT: Normocephalic, atraumatic. Hearing is grossly intact. Nares grossly patent and without discharge. Mucous membranes moist. NECK: No JVD. Patient moves neck without restriction. CARDIO: Rhythm regular. Normal rate. No murmur, rub, or gallop. Pulses equal bilaterally in the upper and lower extremity. No lower extremity edema. PULM: Lungs clear to auscultation in all hernandez. No wheezes, rales, or rhonchi. No conversational dyspnea. No splinting, stridor, or accessory muscle use. GI/: Abdomen is soft and non-tender. Normoactive bowel sounds. EXTREMITIES: Symmetric muscle bulk. No joint swelling. No clubbing, cyanosis, or deformity. SKIN: Warm and dry. Normal turgor. No rash or lesions appreciated. PSYCH: Mood, affect, and interaction is appropriate to the setting. Constitutional Vital Signs, click to edit/add: Last Vital Signs Temp 97.9 F 04/03/24 13:20 Pulse 96 H 04/03/24 15:43 Resp 18 04/03/24 15:43 BP 110/60 04/03/24 15:43 Pulse Ox 100 04/03/24 15:43 O2 Del Method Room Air 04/03/24 13:20 Course Vital Signs Vital signs: Vital Signs Temperature 97.9 F 04/03/24 13:20 Pulse Rate 87 04/03/24 13:20 Respiratory Rate 18 04/03/24 13:20 Blood Pressure 111/69 04/03/24 13:20 Pulse Oximetry 99 04/03/24 13:20 Oxygen Delivery Method Room Air 04/03/24 13:20 Temperature 97.9 F 04/03/24 13:20 Pulse Rate 96 H 04/03/24 15:43 Respiratory Rate 18 04/03/24 15:43 Blood Pressure 110/60 04/03/24 15:43 Pulse Oximetry 100 04/03/24 15:43 Oxygen Delivery Method Room Air 04/03/24 13:20 Medical Decision Making MDM Narrative Medical decision making narrative: Well-appearing 23-year-old female to the emergency department chief complaint of nausea, vomiting, diarrhea. Vital stable, the patient is afebrile. Abdominal examination is benign. No signs of labor. Her heart tones are normal. Suspect gastroenteritis given clinical history and exam. Zofran given. Liter fluids given. Pepcid for her reflux. Lab work is unremarkable. Patient felt much improved. She was able to tolerate oral intake. We discussed gradual return to diet. Zofran was prescribed. We discussed hydration strategy at home. Return precautions were discussed. All questions were answered. The patient was discharged home. Medical Records Medical records reviewed: Yes I reviewed the patient's medical records Lab Data Lab results reviewed: Yes I reviewed the patient's lab results Labs: Lab Results 04/03/24 Range/Units 13:50 WBC 13.1 H (4.0-11.0) 10^3/uL RBC 4.23 (4.20-5.40) 10^6/uL Hgb 12.3 (12.0-16.0) g/dL Hct 37.1 (36.0-48.0) % MCV 87.7 (81.0-99.0) fL MCH 29.1 (26.7-34.0) pg MCHC 33.2 (29.9-35.2) g/dL RDW 12.2 (11.0-15.0) % Plt Count 246 (150-450) 10^3/uL MPV 9.7 (9.5-13.5) fL Seg Neuts % (Manual) 78.0 H (43.0-75.0) Band Neutrophils % 10.0 H (0-5) % Lymphocytes % (Manual) 7.0 L (20.5-60.0) % Monocytes % (Manual) 5.0 (1.7-12.0) % Eosinophils % (Manual) 0.0 L (0.9-7.0) % Basophils % (Manual) 0.0 L (0.2-2.0) % Neutrophils # (Manual) 10.21 H (1.4-6.5) 10^3/uL Band Neutrophils # 1.3 H (0.0-0.3) 10^3/uL Lymphocytes # (Manual) 0.91 L (1.20-3.80) 10^3/uL Monocytes # (Manual) 0.65 (0.30-0.80) 10^3/uL Eosinophils # (Manual) 0.00 (0.00-0.70) 10^3/uL Basophils # (Manual) 0.00 (0.00-0.10) 10^3/uL Sodium 138 (136-145) mmol/L Potassium 3.5 (3.5-5.1) mmol/L Chloride 103 (98-107) mmol/L Carbon Dioxide 24.4 (21.0-32.0) mmol/L Anion Gap 14.1 BUN 9.0 (7.0-18.0) mg/dL Creatinine 0.68 (0.55-1.02) mg/dL Est GFR ( Amer) >60 (>=60 mL/min/1.73m^2) Est GFR (Non-Af Amer) >60 (>=60 mL/min/1.73m^2) BUN/Creatinine Ratio 13.2 Glucose 99 (74-106) mg/dL Calcium 9.0 (8.5-10.1) mg/dL Total Bilirubin 1.9 H (0.2-1.0) mg/dL AST 21 (15-37) U/L ALT 21 (14-59) U/L Alkaline Phosphatase 79 (46-116) U/L Total Protein 7.5 (6.4-8.2) g/dL Albumin 3.1 L (3.4-5.0) g/dL Globulin 4.4 g/dL Albumin/Globulin Ratio 0.7 Lipase 28.0 (16.0-77.0) U/L Discharge Plan Discharge Chief Complaint: Abdominal Pain Clinical Impression: Gastroenteritis Patient Disposition: Home, Self-Care Time of Disposition Decision: 15:51 Condition: Good Mode of Transportation: Private Vehicle Prescriptions / Home Meds: New ondansetron 4 mg tablet,disintegrating 4 mg PO Q8H PRN (Reason: nausea and vomiting) 4 Days Qty: 16 0RF No Action [id number]-FA 1 mg tablet 1 tab PO ibuprofen 800 mg tablet 800 mg PO Q8H PRN (Reason: pain) 14 Days Qty: 40 0RF oxycodone-acetaminophen [Percocet] 5-325 mg tablet 1 tab PO Q6H PRN (Reason: pain) 7 Days Qty: 28 0RF Print Language: American Instructions: Acute Nausea and Vomiting (ED) Additional Instructions: Call the office of your primary care doctor to arrange for follow-up within the above-stated timeframe. Your ED visit was focused on your acute issue and does not replace primary care. You should review your labs, imaging, and diagnoses from this ED visit with your primary care physician. There may be non-emergent/ incidental findings that need further evaluation. You should review your vital signs including blood pressure with your PCP. If you were prescribed medications you should discuss possible side-effects and drug interactions with your pharmacist. Call 911 or go to the nearest Emergency Department if you develop any new or worsening symptoms. Seek immediate medical attention if you develop: worsening abdominal pain, new or worsening nausea, new or worsening vomiting, new or worsening diarrhea, chest pain, shortness of breath, pain with urination, problems urinating, fever, chills, weakness, or any new or worsening symptoms. Referrals: Physician,Non-Staff, MD [Primary Care Provider] - 1 week Discharge Date/Time: 04/03/24 15:59
== END 2024-04-03 15:59 | disposition home or self-care (01) ==
PROVIDERS: Emergency Provider Student in an Organized Health Care Education/Training Program
DX: O99.612 Diseases of the digestive system complicating pregnancy, second trimester (principal); K52.9 Noninfective gastroenteritis and colitis, unspecified; Z3A.25 25 weeks gestation of pregnancy
CPT/HCPCS: 36415; 80053; 83690; 85007; 85027; 96361; 96374; 96375; 99284; J2405

== ENCOUNTER 2024-04-28 10:26 | Outpatient (OUT) | payer MEDICAID, SELFPAY ==
--- NOTE | 2024-04-28 10:29 | US_ITS ---
[address] [address] Patient Name: DAREN BYNUM MRN: [id number] date: 2000 Sex: F Assigned Patient Location: [place] Current Patient Location: [place] Accession/Order Number: [id number] Exam Date: 04/28/2024 10:34 Report Date: 04/28/2024 11:37 At the request of: DARIA ESCOBEDO Procedure: US OB growth EXAMINATION: US OB growth HISTORY: Small For Dates Fetus Third Trimester COMPARISON: No relevant comparison available. FINDINGS: Heart Rate: 139.90 bpm Amniotic Fluid Volume: 17.6 cm, largest fluid pocket 6 cm Number: 1 Position: Cephalic presentation, longitudinal lie BIOMETRY: BPD: 6.92 cm; 27 weeks 6 days; 23.30 % HC: 25.45 cm; 27 weeks 5 days; 7.60 % AC: 22.70 cm; 27 weeks 1 day; 12.40 % FL: 5.21 cm; 27 weeks 5 days; 21 % EFW: 1072.84 g; 12.40 %, 2 lbs. 6 oz. FL/AC: 22.93 FL/BPD: 75.26 HC/AC: 1.12 GESTATIONAL AGE: Age by EDC: 28 weeks 2 days TABBY by EDC: 2024-07-19 Age by US: 27 weeks 4 days TABBY by US: 2024-07-24 US/US OB growth IMPRESSION: Normal interval growth Electronically authenticated by: PAPO CAGE Date: 04/28/2024 11:37
== END 2024-04-28 10:27 | disposition home or self-care (01) ==
LOC: US 10:26
PROVIDERS: Visit Provider Midwife
DX: O36.5930 Maternal care for other known or suspected poor fetal growth, third trimester, not applicable or unspecified (principal); Z3A.28 28 weeks gestation of pregnancy
CPT/HCPCS: 76816

== ENCOUNTER 2024-07-12 10:09 | Inpatient (IN) | payer OTHER, SELFPAY ==
[2024-07-12] VITALS (46 sets, daily range): BP systolic 92–154; BP diastolic 46–73; PULSE 61–116; TEMP 36.1–36.9; O2SAT 97–100
--- OUTSIDE RECORDS SUMMARY | 2024-07-12 10:22 | XMS_ITS | CCD ---
Author Organization [facility] Care Team Providers Care Shotweld Operator Name Role Phone EDUARDOVÍCTORMA M Unavailable Unavailable EDUARDO, GER M Unavailable Unavailable KARASIK ., DR WASHINGTON Admitting Unavailabl e KARASIK ., DR WASHINGTON Attending Unavailabl e KARASIK ., DR WASHINGTON Consulting Unavailabl e REQUEST, DR WHITFIELD LISTED Primary Care Unavaila ble Carlos Ruth Consulting Unavailable KARASIK ., DR WASHINGTON Admitting Unavailabl e KARASIK ., DR WASHINGTON Attending Unavailabl e KARASIK ., DR WASHINGTON Consulting Unavailabl e REQUEST, DR WHITFIELD LISTED Primary Care Unavaila ble KARASIK ., DR WASHINGTON Admitting Unavailabl e KARASIK ., DR WASHINGTON Attending Unavailabl e REQUEST, DR WHITFIELD LISTED Primary Care Unavaila ble KARASIK ., DR WASHINGTON Admitting Unavailabl e REQUEST, DR WHITFIELD LISTED Primary Care Unavaila ble KARASIK ., DR WASHINGTON Attending Unavailabl e KARASIK ., DR WASHINGTON Consulting Unavailabl e NILES, DR PAPO Crandall Consulting Unavailable KARASIK ., DR WASHINGTON Attending Unavailabl e KARASIK ., DR WASHINGTON Consulting Unavailabl e REQUEST, DR WHITFIELD LISTED Primary Care Unavaila ble KARASIK ., DR WASHINGTON Admitting Unavailabl e KARASIK ., DR WASHINGTON Admitting Unavailabl e REQUEST, DR WHITFIELD LISTED Primary Care Unavaila ble KARASIK ., DR WASHINGTON Attending Unavailabl e KARASIK ., DR WASHINGTON Consulting Unavailabl e Unallocated , Noms Provider Primary Care Provi sonal Daria Felipe CNM Unavailable [phone] Unallocated , Noms Provider Primary Care Provi sonal DARIA FELIPE Attending Unavailable FLORO, DARIA Suarez Referring Unavailable FLORO, DARIA L Attending Unavailable FLORO, DARIA L Attending Unavailable FLORO, DARIA L Attending Unavailable FLORO, DARIA L Attending Unavailable FLORO, DARIA L Attending Unavailable FLORO, DARIA L Referring Unavailable FLORO, DARIA L Attending Unavailable FLORO, DARIA L Referring Unavailable FLORO, DARIA L Attending Unavailable Medications Current Medications Medication Drug Class(es) Dates Sig (Normalized) Sig (Original) docusate sodium 100 mg oral capsule (9 sources) Start: 04-29-2024 End: 07-28-2024 take 1 capsule by mouth in the morning docusate sodium (Colace) 100 MG capsule Indications: Iron deficiency anemia, unspecified iron deficiency anemia type Take 1 capsule (100 mg) by mouth in the morning and 1 capsule (100 mg) before bedtime. 30 capsule 3 04/29/2024 07/28/2024 Active ferrous sulfate 325 mg delayed release oral tablet (9 sources) Start: 04-29-2024 End: 04-29-2025 take 1 tablet by mouth in the morning ferrous sulfate (Fe Tabs) 325 (65 Fe) MG EC tablet Indications: Iron deficiency anemia, unspecified iron deficiency anemia type Take 1 tablet (325 mg) by mouth in the morning and in the evening Do not crush, chew, or split. 60 tablet 3 04/29/2024 04/29/2025 Active Vit-Fe Fumarate-FA ( Vitamin) 27-0.8 MG tablet (20 sources) Vit-Fe Fumarate-FA ( Vitamin) 27-0.8 MG tablet Take 27 mg by mouth 1 (one) time each day at the same time. Active Vit-Fe Fumarate-FA (/Iron) 28-0.8 MG tablet (20 sources) Start: 12-15-2023 take 1 tablet by mouth once daily Vit-Fe Fumarate-FA (/Iron) 28-0.8 MG tablet Indications: examination or test, positive result Take 1 tablet by mouth Daily 90 tablet 3 12/15/2023 Active Problems Active Problems Problem Classification Problem Date Documented Da te Episodic/Chronic Deficiency and other anemia (2 sources) Iron deficiency anemia; Translations: [Iron deficiency anemia, unspecified] 04-29-2024 Episodic Menstrual disorders (4 sources) Irregular menstruation, unspecified; Translations: [IRREGULAR MENSTRUATION UNSPECIFIED] Onset: 05-12-2022 Chronic Other complications of (2 sources) Small for gestational age fetus; Translations: [Maternal care for other known or suspected poor growth, third trimester, not applicable or unspecified] 04-27-2024 Episodic Other complications of (2 sources) Poor growth affecting management; Translations: [Maternal care for other known or suspected poor growth, third trimester, not applicable or unspecified] 06-15-2024 Episodic Other infections; including parasitic (4 sources) History of chlamydial infection; Translations: [Personal history of other infectious and parasitic diseases] 03-15-2024 Episodic Other and delivery including normal (20 sources) Encounter for supervision of other normal , second trimester; Translations: [Encounter for supervision of other normal , first trimester] Onset: 04-28-2022 Episodic Other screening for suspected conditions (not mental disorders or infectious disease) (6 sources) Patient encounter status; Translations: [Encounter for screening for diabetes mellitus] 04-27-2024 Episodic Past or Other Problems Problem Classification Problem Date Documented Da te Episodic/Chronic Residual codes; unclassified (1 source) 10 weeks gestation of ; Translations: [10 WEEKS GESTATION OF ] Onset: 04-30-2022 Episodic Sprains and strains (1 source) Strain of muscle, fascia and tendon of lower back, initial encounter; Translations: [Strain of muscle, fascia and tendon of lower back, initial encounter] Onset: 01-15-2017 Episodic Results Test Name Value Interpretation Reference Range Facility US OB FOLLOW UP TRANSABDOMIN AL APPROACHon 06-15-2024 US OB FOLLOW UP TRANSABDOMINAL APPROACH EXAM: OB Ultrasound: REASON FOR EXAM: survey. COMPARISON: Comparison: March 07, 2024. TECHNIQUE: Grayscale and M-mode Doppler imaging is performed. FINDINGS: heart rate: 126 bpm NELI: 14.2 cm (7.9 - 24.9) BPD: 8.4 cm HC: 30.4 cm AC: 29.6 cm FL: 6.6 cm Cervix length: 3.6 cm GA for sonogram: 33.5 wks (31.0 - 35.9) TABBY: 07/19/2024 Weight Estimate: Weight: 2266 gm/4 lbs, 15 oz (1935 - 2596 gm) Hadlock Normal: 2626 gm (2180 - 3072 gm) Hadlock Wt%: 15% for 35.1 wks Single living intrauterine gestation. 35 weeks 1 day gestational age based on LMP. 15% weight for 35 weeks 1 day. Cephalic presentation. Placenta anterior, grade 2/3. Cervical length 3.58 cm. cardiac activity 126 bpm. NELI 14.7. The bladder is prominent on the current study. IMPRESSION: 1. Single living intrauterine gestation. 35.1 weeks gestational age based on LMP. 15 percentile for growth. Lower limits of normal. 2. Prominent, incompletely visualized bladder. The bladder was without abnormality on the previous scan. Recommend bladder ultrasound. This report is generated using voice recognition reporting (blinkbox). On occasion, blinkbox erroneously drops words from the report or replaces the spoken word with a similar sounding word. Please call with any questions/concerns regarding the report. Dictated and transcribed 06/16/2024/barbara This report has been electronically signed and approved by the interpreting radiologist. Normal Not Available CBC panel Auto (Bld)on 04-28 Erythrocyte distribution width (RBC) [Ratio] 12.2 % 11.0 - 15.0 % [facility] Hematocrit (Bld) [Volume fraction] 28.8 % Low 35.0 - 45.0 % [facility] [Mass/Vol] 9.7 g/dL Low 11.7 - 15.5 g/dL [facility] Interpretation and review of laboratory results Abnormal [facility] MCH (RBC) [Entitic mass] 28.3 pg 27.0 - 33.[address] [facility] MCHC (RBC) [Mass/Vol] 33.7 g/dL 32.0 - 36.0 g/dL [facility] Comment on above: For adults, a slight decrease in the calculated MCHC value (in the range of 30 to 32 g/dL) is most likely not clinically significant; however, it should be interpreted with caution in correlation with other red cell parameters and the patient's clinical condition. MCV (RBC) [Entitic vol] 84 fL 80.0 - 100.[address] [facility] Platelet mean volume (Bld) [Entitic vol] 9.9 fL 7.5 - 12.5 fL [facility] are Platelets (Bld) [#/Vol] 212 10*3/uL [facility] RBC (Bld) [#/Vol] 3.43 10*6/uL Low [facility] WBC (Bld) [#/Vol] 13.1 10*3/uL High [facility] Laboratory - Chemistry and C hemistry - challengeon 04-28-2024 Glucose 1 Hr post 50 g glucose PO [Mass/Vol] 85 mg/dL NINF - 135 mg/dL [facility] No Panel Informationon 04-28 Performing Organization Information Site ID: QPT Name: [employer] [facility] Address: [address] [place] [address], [address] [place] [id number] Director: Oliver Manzanares MD [facility] N. gonorrhoeae DNA JOVANNY+probe Ql (Cervical mucus)on 03-16-2024 (ALWAYS MESSAGE) [facility] Comment on above: The analytical perfo rmance characteristics of this assay, when used to test SurePath(TM) specimens have been determined by [employer]. The modifications have not been cleared or approved by the FDA. This assay has been validated pursuant to the CLIA regulations and is used for clinical purposes. For additional information, please refer to https://education.[employer]/faq/SZU600 (This link is being provided for information/ educational purposes only.) C. trachomatis rRNA JOVANNY+probe Ql (Unsp spec) Not detected NOT DETECTED [facility] N. gonorrhoeae rRNA JOVANNY+probe Ql (Unsp spec) Not detected NOT DETECTED [facility] Organization Information Site ID: QPT Name: [employer] [facility] Address: [address] [place] [address], [address] [place] [id number] Director: Oliver Manzanares MD [facility] US OB 14+ WEEKS ANATOMY SCAN on 03-01-2024 US OB 14+ WEEKS ANATOMY SCAN TITLE OF EXAM: OB Ultrasound: REASON FOR EXAM: survey. TECHNIQUE: Grayscale and color Doppler imaging is performed. Measurements: heart rate: 153 bpm NELI: 11.8 cm (9.5-21.4) BPD: 4.6 cm HC: 18.1 cm AC: 15.3 cm FL: 3.4 cm GA for sonogram: 20.3 wk (18.9-21.8) Cervix length: 4.3 cm TABBY: 07/19/2024 Weight Estimate: Weight: 361 gm / 0 lbs, 12 oz (308-414 gm) Hadlock Normal: 389 gm (323-456 gm) Hadlock Wt%: 29% for 20.9 wks CLINICAL SUMMARY: A single intrauterine is noted in cephalic presentation. Four chamber heart is observed with a heart rate of 153 BPM. size is normal. growth: Consistent with normal growth. motion and organs seen: Normal intracranial anatomy is seen. tone is noted. body and limb movements are observed. spine, limbs, bladder, kidneys, and stomach are observed and within normal limits. Umbilical cord insertion and three vessel cord are identified and within normal limits. bowel, lungs, genitalia, four limbs are visualized and normal in appearance. Placenta is located fundally. Possible succenturiate lobe posteriorly. Placenta is Grade 0/III Amniotic fluid volume is normal. Internal os not well visualized due to skull. Possible succenturiate lobe of placenta posteriorly. Repeat US in 4-6 weeks could be useful to re-assess. Dictated and transcribed 03/08/24dpd This report has been electronically signed and approved by the interpreting radiologist. Normal Not Available US OB < 14 WEEKS EARLYon US OB < 14 WEEKS EARLY TITLE OF EXAM: OB Ultrasound: REASON FOR EXAM: Confirm dates. TECHNIQUE: Grayscale imaging is performed. Measurements: heart rate: 183 bpm Sac: 3.2 cm CRL: 2.1 cm GA for sonogram: 8.7 wk (08.0-09.4) Cervix Length: 3.5 cm TABBY: 07/19/2024 CLINICAL SUMMARY: An endovaginal exam was performed. Early intrauterine is seen with positive cardiac activity. Yolk sac is identified and within normal limits. heart is observed with a heart rate of 183. Anechoic area on left ovary measuring 1.6 x 1.3 x 1.6 cm - corpus luteal cyst. Limited study. Full anatomical survey not performed. Dictated and transcribed 12/16/23dpd This report has been electronically signed and approved by the interpreting radiologist. Electronically Signed Yimi Pace M.D. 2023-12-16 12:47:44 Normal Not Available AFP MATERNAL FOR SPINA BIFID Aon 07-14-2022 AFP MoM 0.97 Normal [facility] Comment on above: Performed By: #### D RUGRPD #### [facility] [address] [address] [address] Surjit Sánchez AFP Value 73.1 ng/mL Normal [facility] Comment on above: Performed By: #### D RUGRPD #### [facility] [address] [address] [address] Surjit Sánchez AFP, Serum for Spina Bifida Report Normal [facility] Comment on above: Performed By: #### D RUGRPD #### [facility] [address] [address] [address] Surjit Sánchez Comment Comment Normal [facility] Comment on above: Result Comment: Adrian Mcduffie, Ph.D., [facility] Director . References: Available Upon Request. . Multiples Of Median Cutoffs For AFP Elevations Monge 2.5 Black 2.8 IDD 2.0 Twins 4.5 Abbreviation Definitions IDD - Insulin Dep Diabetes OSBR - Open Spina Bifida Risk . For further inquiries contact [employer] [facility] at [phone]. . This test was developed and its performance characteristics determined by [employer]. It has not been cleared or approved by the Food and Drug Administration. Performed By: #### D RUGRPD #### [facility] [address] [address] [address] Surjit Gillespie Age Collection Date 19.4 weeks Normal [facility] Comment on above: Performed By: #### D RUGRPD #### [facility] [id number] Surjit Sánchez Gestat, Age Based on LMP [facility] Comment on above: Result Comment: Reca lculations are not recommended when gestational dating by LMP and ultrasound are within 10 days. Performed By: #### D RUGRPD #### [facility] [address] [address] [address] Surjit Sánchez Insulin Dep Diabetes No Normal [facility] Comment on above: Performed By: #### D RUGRPD #### [facility] [address] [address] [address] Surjit Sánchez Interpretation Comment Normal [facility] Comment on above: Result Comment: Inte rpretation: Screen Negative . This result is screen negative for OSB. The AFP MoM calculated is based on the gestational age provided. MS-AFP can identify up to 80% of open neural tube defects. Closed neural tube defects and some open defects may not be detected by this test. This test does not screen for Down Syndrome or Trisomy 18. If screening for Down Syndrome or Trisomy 18 is desired, contact [employer] to discuss available options. The [employer] recommends amniocentesis be offered to women age 35 and older. Performed By: #### D RUGRPD #### [facility] [address] [place] [address] Dr. Surjit Sánchez [age] TABBY [age] Normal [facility] Comment on above: Performed By: #### D RUGRPD #### [facility] [address] [address] [address] Surjit Sánchez Multiple Gestation No Normal [facility] Comment on above: Performed By: #### D RUGRPD #### [facility] [address] [place] [address] Dr. Surjit Sánchez OS[place] [address] Normal [facility] Comment on above: Performed By: #### D RUGRPD #### [facility] [address] [address] [address] Surjit Sánchez PDF . Normal [facility] Comment on above: Performed By: #### D RUGRPD #### [facility] [address] [address] [address] Surjit áSnchez Race Normal [facility] Comment on above: Performed By: #### D RUGRPD #### [facility] [address] [address] [address] Surjit Sánchez Test Results: Negative Normal [facility] Comment on above: Performed By: #### D RUGRPD #### [facility] [address] [address] [address] Surjit Sánchez US PREG ANATOMY SINGLEon US PREG ANATOMY SINGLE EXAMINATION: US PREG ANATOMY SINGLE HISTORY: anatomy study COMPARISON: No relevant comparison available. TECHNIQUE: Transabdominal sonographic examination was performed for obstetrical and evaluation. FINDINGS: Number: 1 Heart Rate: 138.0 bpm H.B. /min Amniotic Fluid Volume: subjectively normal Placental Location: posterior, grade 0, edge is 3.6 cm from the os Cervix Length: 4.0 cm, closed Normal structures: Cerebellum. Choroid plexus. Cisterna magna. Lateral cerebral ventricles. Orbits. Midline falx. Hard palate. 4-chamber heart. RVOT. LVOT. Stomach. Kidneys. Bladder. Umbilical cord insertion into abdomen. 3 vessel cord. Cervical spine. Thoracic spine. Lumbar spine. Sacral spine. Right upper extremity. Left upper extremity. Right lower extremity. Left lower extremity. Suboptimally seen: None. Abnormalities/Other: None BIOMETRY: BPD: 4.7 cm 20w2d, 31% HC: 17.9 cm 20w3d, 26% AC: 14.9 cm 20w2d, 26% FL: 3.26 cm, 20w2d, 23% EFW:338.4 grams; 12 oz, 33% by ultrasound FL/AC: 0.2 FL/BPD: 0.7 HC/AC: 1.2 GESTATIONAL AGE: Age by EDC: 20w5d TABBY by EDC: 11/21/22 Age by current US: 20w3d TABBY by current US: 11/23/22 IMPRESSION: Normal anatomy scan *Reference: [employer] Practice Guideline for the performance of Obstetric Ultrasound Examinations, January 18, 2007. Electronically authenticated by: PAPO CAGE Date: 2022-07-09 12:48 Normal [facility] HEP B SURFACE ANTIGEN SCREEN on 05-13-2022 HBsAg Screen Negative Normal Negative [facility] Comment on above: Performed By: #### H BSANS #### [facility] [address] [place] [address] Dr. Surjit Sánchez HEPATITIS C VIRUS AB W/ REFL EX QUANTon 05-13-2022 HCV AB <0.1 Normal 0.0-0.9 [facility] Comment on above: Performed By: #### H CVPCRR #### [facility] [address] [place] [address] Dr. Surjit Sánchez Interpretation: Comment Normal [facility] Comment on above: Result Comment: Nega tive Not infected with HCV, unless recent infection is suspected or other evidence exists to indicate HCV infection. Performed By: #### H CVPCRR #### [facility] [address] [place] [address] Dr. Surjit Sánchez HIV 1 AND 2 WITH REFLEXon HIV Screen 4th Generation wRfx Non-Reactive Normal Non Reactive [facility] Comment on above: Result Comment: HIV Negative HIV-1/HIV-2 antibodies and HIV-1 p24 antigen were NOT detected. There is no laboratory evidence of HIV infection. Performed By: #### H IV12 #### [facility] [address] [place] [address] Dr. Surjit Sánchez RPR QUANTon 05-13-2022 Rapid Plasma Reagin, Quant Non-Reactive Normal NonRea<1:1 [facility] Comment on above: Result Comment: Plea se Note: This test does not meet current guidelines for screening and diagnosis of syphilis. This test is intended for following treatment response in patients being treated for syphilis infection. To screen for syphilis infection, a reflex cascade that includes both RPR and a treponema-specific assay should be utilized, such as Treponema pallidum (Syphilis) Screening [place] (042393) or Rapid Plasma Reagin (RPR) Test With Reflex to Quantitative RPR and Confirmatory Treponema pallidum Antibodies (160438). Performed By: #### R PRQ #### [facility] [address] [place] [address] Dr. Surjit Sánchez RUBELLA AB IGGon 05-13-2022 Rubella Antibodies, IgG 1.15 index Normal Immune >0.99 [facility] Comment on above: Result Comment: Non- immune <0.90 Equivocal 0.90 - 0.99 Immune >0.99 Performed By: #### R UBIGG #### [facility] [address] [place] [address] Dr. Surjit Sánchez CBC AUTO DIFFon 05-12-2022 BASO # 0.0 103/ul Normal 0.0-0.1 [facility] Comment on above: Performed By: #### C BC #### [facility] [address] [place] [address] Dr. Surjit Sánchez Basophils/100 WBC (Bld) 0.3 % Normal 0.2-2.0 [facility] Comment on above: Performed By: #### C BC #### [facility] [address] [place] [address] Dr. Surjit Sánchez EO # 0.1 103/ul Normal 0.0-0.7 [facility] Comment on above: Performed By: #### C BC #### [facility] [address] [place] [address] Dr. Surjit Sánchez Eosinophils/100 WBC (Bld) 1.4 % Normal 0.9-7.0 [facility] Comment on above: Performed By: #### C BC #### [facility] [address] [place] [address] Dr. Surjit Sánchez Erythrocyte distribution width (RBC) [Ratio] 11.6 % Normal 11.0-15.0 [facility] Comment on above: Performed By: #### C BC #### [facility] [address] [place] [address] Dr. Surjit Sánchez Hematocrit (Bld) [Volume fraction] 36.2 % Normal 36.0-48.0 [facility] Comment on above: Performed By: #### C BC #### [facility] [address] [place] [address] Dr. Surjit Sánchez Hemoglobin (Bld) [Mass/Vol] 13.3 g/dL Normal 12.0-16.0 [facility] Comment on above: Performed By: #### C BC #### [facility] [address] [place] [address] Dr. Surjit Sánchez IG # 0.03 10e3/ul Normal 0.00-0.03 [facility] Comment on above: Performed By: #### C BC #### [facility] [address] [place] [address] Dr. Surjit Sánchez IG % 0.4 % Normal 0.0-0.5 [facility] Comment on above: Performed By: #### C BC #### [facility] [address] [place] [address] Dr. Surjit Sánchez LYMPH # 1.6 103/ul Normal 1.2-3.8 [facility] Comment on above: Performed By: #### C BC #### [facility] [address] [place] [address] Dr. Surjit Sánchez Lymphocytes/100 WBC (Bld) 20.4 % Critically low 20.5-60.0 [facility] Comment on above: Performed By: #### C BC #### [facility] [address] [place] [address] Dr. Surjit Sánchez MANUAL DIFF REQ NO Normal [facility] Comment on above: Performed By: #### C BC #### [facility] [address] [place] [address] Dr. Surjit Sánchez MCH (RBC) [Entitic mass] 30.6 pg Normal 26.7-34.0 [facility] Comment on above: Performed By: #### C BC #### [facility] [address] [place] [address] Dr. Surjit Sánchez MCHC (RBC) [Mass/Vol] 36.7 g/dL Critically high 29.9-35.2 [facility] Comment on above: Performed By: #### C BC #### [facility] [address] [place] [address] Dr. Surjit Sánchez MCV (RBC) [Entitic vol] 83.4 fL Normal 81.0-99.0 [facility] Comment on above: Performed By: #### C BC #### [facility] [address] [place] [address] Dr. Surjit Sánchez MONO # 0.6 103/ul Normal 0.3-0.8 [facility] Comment on above: Performed By: #### C BC #### [facility] [address] [place] [address] Dr. Surjit Sánchez Monocytes/100 WBC (Bld) 7.4 % Normal 1.7-12.0 [facility] Comment on above: Performed By: #### C BC #### [facility] [address] [address] [address] Surjit Sánchez NEUT # 5.3 103/ul Normal 1.4-6.5 [facility] Comment on above: Performed By: #### C BC #### [facility] [address] [place] [address] Dr. Surjit Sánchez Neutrophils/100 WBC (Bld) 70.1 % Normal 43.0-75.0 [facility] Comment on above: Performed By: #### C BC #### [facility] [address] [place] [address] Dr. Surjit Sánchez Platelet mean volume (Bld) [Entitic vol] 9.2 fL Critically low 9.5-13.5 [facility] Comment on above: Performed By: #### C BC #### [facility] [address] [place] [address] Dr. Surjit Sánchez PLT 237 103/ul Normal 150-450 [facility] Comment on above: Performed By: #### C BC #### [facility] [address] [place] [address] Dr. Surjit Sánchez RBC 4.34 106/ul Normal 4.20-5.40 [facility] Comment on above: Performed By: #### C BC #### [facility] [address] [place] [address] Dr. Surjit Sánchez WBC 7.6 103/ul Normal 4.0-11.0 [facility] Comment on above: Performed By: #### C BC #### [facility] [address] [place] [address] Dr. Surjit Sánchez CULTURE URINEon 05-12-2022 CULTURE URINE Culture Observations: NO GROWTH. Normal [facility] Comment on above: Performed By: #### D RUGRPD #### [facility] [address] [place] [address] Dr. Surjit Sánchez DRUG SCREEN RAPID (URINE)on 05-12-2022 AMP Negative Normal NEGATIVE [facility] Comment on above: Performed By: #### D RUGRPD #### [facility] [address] [place] [address] Dr. Surjit Sánchez BAR Negative Normal NEGATIVE [facility] Comment on above: Performed By: #### D RUGRPD #### [facility] [address] [place] [address] Dr. Surjit Sánchez BUP Negative Normal NEGATIVE [facility] Comment on above: Performed By: #### D RUGRPD #### [facility] [address] [place] [address] Dr. Surjit Sánchez BZO Negative Normal NEGATIVE [facility] Comment on above: Performed By: #### D RUGRPD #### [facility] [address] [place] [address] Dr. Surjit Sánchez SHAILA Negative Normal NEGATIVE [facility] Comment on above: Performed By: #### D RUGRPD #### [facility] [address] [place] [address] Dr. Surjit Sánchez CUT-OFFS SEE BELOW Normal [facility] Comment on above: Result Comment: AMP (Amphetamine): 500ng/mL, BAR (Barbituates): 200 ng/mL, BZO (Benzodiazepines): 150 ng/mL, BUP (Buprenorphine): 10 ng/mL, SHAILA (Cocaine): 150 ng/mL, mAMP (Methamphetamine): 500 ng/mL, MTD (Methadone): 200 ng/mL, OPI (Opiates): 100 ng/mL, OXY (Oxycodone): 100 ng/mL, PCP (Phencyclidine): 25 ng/mL, PPX (Propoxyphene): 300 ng/mL, THC (Cannabinoids): 50 ng/mL, TCA (Trycyclic Antidepressants): 300 ng/mL Performed By: #### D RUGRPD #### [facility] [address] [place] [address] Dr. Surjit Sánchez DRUG CUT HEADER DRUG CLASS TEST SYSTEM CUT-OFF CONCENTRATIONS ARE FOLLOWS: Normal [facility] Comment on above: Performed By: #### D RUGRPD #### [facility] [address] [place] [address] Dr. Surjit Sánchez mAMP Negative Normal NEGATIVE [facility] Comment on above: Performed By: #### D RUGRPD #### [facility] [address] [address] [address] Surjit Sánchez MTD Negative Normal NEGATIVE [facility] Comment on above: Performed By: #### D RUGRPD #### [facility] [address] [address] [address] Surjit Sánchez OPI Negative Normal NEGATIVE [facility] Comment on above: Performed By: #### D RUGRPD #### [facility] [address] [address] [address] Surjit Sánchez OXY Negative Normal NEGATIVE [facility] Comment on above: Performed By: #### D RUGRPD #### [facility] [address] [address] [address] Surjit Sánchez PCP Negative Normal NEGATIVE [facility] Comment on above: Performed By: #### D RUGRPD #### [facility] [address] [address] [address] Surjit Sánchez PPX Negative Normal NEGATIVE [facility] Comment on above: Performed By: #### D RUGRPD #### [facility] [address] [address] [address] Surjit Sánchez TCA Negative Normal NEGATIVE [facility] Comment on above: Performed By: #### D RUGRPD #### [facility] [address] [address] [address] Surjit Sánchez THC Negative Normal NEGATIVE [facility] Comment on above: Performed By: #### D RUGRPD #### [facility] [address] [address] [address] Surjit Sánchez GLYCOHEMOGLOBIN A1Con 2022 ADA RECOMMENDATION SEE BELOW Normal [facility] Comment on above: Result Comment: ADA RECOMMENDED LIMIT 4.0 - 6.0 ADA THERAPEUTIC TARGET < 7.0 ACTION SUGGESTED > 7.0 Performed By: #### A 1C #### [facility] [address] [place] [address] Dr. Surjit Sánchez Glucose [Mass/Vol] 85 mg/dL Normal [facility] Comment on above: Performed By: #### A 1C #### [facility] [address] [place], [place] [address] Dr. Surjit Sánchez HbA1c (Bld) [Mass fraction] 4.6 % Normal 4.5-6.2 [facility] Comment on above: Performed By: #### A 1C #### [facility] [address] [place], [place] [address] Dr. Surjit Sánchez JESSIE BOX TEST PT SEND OUTo n 05-12-2022 SENT TO REF LAB 05/12/2022 Normal [facility] Comment on above: Performed By: #### N BOX #### [facility] [address] [address] [address] Surjit Sánchez TYPE AND SCREENon 05-12-2022 TYPE AND SCREEN Negative Normal [facility] Comment on above: Performed By: #### D RUGRPD #### [facility] [address] [address] [address] Surjit Sánchez US PREG TVon 04-28-2022 US PREG TV EXAMINATION: US PREG TV HISTORY: Missed period COMPARISON: No relevant comparison available. FINDINGS: GESTATIONAL SAC: Present and normal appearing. YOLK SAC: Present and normal appearing. POLE: Present and normal appearing. CARDIAC: Present. UTERUS: Normal size and appearance. OVARIES: Right: Normal. Left: Normal. CERVIX: 3.6 cm in length and closed. CUL-DE-SAC: Normal. OTHER: None. AGE BY LMP: 10 weeks 3 days TABBY BY LMP: 11/21/2022 AGE BY US CRL: 10 weeks 0 days TABBY BY US CRL: 11/24/2022 IMPRESSION: 1. Single live intrauterine . Electronically authenticated by: CARLOS RUTH Date: 2022-04-28 11:48 Normal [facility] ED Noteon 01-15-2017 HIM IP Note OR Theoretical Physicist Normal [facility] HIM IP Note OR Theoretical Physicist Normal [facility] ED Provider Noteon 7 HIM IP Note OR Theoretical Physicist Normal [facility] HCG, ,Urineon 01-15 HCG.beta subunit ( test) Ql (U) Negative Normal NEG [facility] Comment on above: Result Comment: Perf ormed at [facility] [address] [place] [address] Performed By: #### U HCG, UAX, UMICAO ####[address] [place] [address] UA w/Reflex Cultureon 2016 Acetaminophen mass conc Negative Normal NEG [facility] Comment on above: Performed By: #### U HCG, UAX, UMICAO ####[address] [place] [address] Bilirubin (direct) Negative Normal NEG [facility] Comment on above: Performed By: #### U HCG, UAX, UMICAO ####[address] [place] [address] Hemoglobin mass conc (Bld) Negative Normal NEG [facility] Comment on above: Performed By: #### U HCG, UAX, UMICAO ####[address] [place] [address] Nitrite,Ur Negative Normal NEG [facility] Comment on above: Performed By: #### U HCG, UAX, UMICAO ####[address] [place] [address] Turbidity CLEAR Normal CLEAR [facility] Comment on above: Performed By: #### U HCG, UAX, UMICAO ####[address] [place] [address] Urine, color YELLOW Normal YEL [facility] Comment on above: Performed By: #### U HCG, UAX, UMICAO ####[address] [place] [address] Urine, glucose presence Negative Normal NEG [facility] Comment on above: Performed By: #### U HCG, UAX, UMICAO ####[address] [place] [address] Urine, leukocyte esterase presence Negative Normal NEG [facility] Comment on above: Result Comment: Perf ormed at [address] [place] [address] Performed By: #### U HCG, UAX, UMICAO ####[address] [place] [address] Urine, pH 6.0 [pH] Normal 5.0-9.0 [facility] Comment on above: Performed By: #### U HCG, UAX, UMICAO ####[address] [place] [address] Urine, protein presence Negative Normal NEG [facility] Comment on above: Performed By: #### U HCG, UAX, UMICAO ####[address] [place] [address] Urine, specific gravity 1.015 Normal 1.010-1.020 [facility] Comment on above: Performed By: #### U HCG, UAX, UMICAO ####[address] [place] [address] Urobilinogen,Ur Normal Normal NORM [facility] Comment on above: Performed By: #### U HCG, UAX, UMICAO ####[address] [place] [address] Comment NOT REPORTED Normal [facility] Comment on above: Performed By: #### U HCG, UAX, UMICAO ####[address] [place] [address] Urinalysis,Microon 7 ----- Normal [facility] Comment on above: Performed By: #### U HCG, UAX, UMICAO ####[address] [place] [address] Urine WBC's None Normal 0-5 [facility] Comment on above: Performed By: #### U HCG, UAX, UMICAO ####[address] [place] [address] Urine, epithelial cells in sediment 0 TO 2 Normal 0-25 [facility] Comment on above: Result Comment: Perf ormed at [facility] [address] [place] [address] Performed By: #### U HCG, UAX, UMICAO ####[address] [place] [address] Urine, erythrocytes None Normal 0-2 [facility] Comment on above: Performed By: #### U HCG, UAX, UMICAO ####[address] [place] [address] Epithelial, Renal NOT REPORTED Normal 0 [facility] Comment on above: Performed By: #### U HCG, UAX, UMICAO ####[address] [place] [address] Mucus Strands NOT REPORTED Normal [facility] Comment on above: Performed By: #### U HCG, UAX, UMICAO ####[address] [place] [address] Other Observations NOT REPORTED [facility] Comment on above: Performed By: #### U HCG, UAX, UMICAO ####[address] [place] [address] Trichomonas NOT REPORTED Normal NONE [facility] Comment on above: Performed By: #### U HCG, UAX, UMICAO ####[address] [place] [address] Urine, amorphous sediment presence in sediment NOT REPORTED Normal [facility] Comment on above: Performed By: #### U HCG, UAX, UMICAO ####[address] [place] [address] Urine, bacteria in sediment NOT REPORTED Normal NONE [facility] Comment on above: Performed By: #### U HCG, UAX, UMICAO ####[facility] [place] [address] Urine, casts in sediment NOT REPORTED Normal [facility] Comment on above: Performed By: #### U HCG, UAX, UMICAO ####[facility] [place] [address] Urine, crystals in sediment NOT REPORTED Normal NONE [facility] Comment on above: Performed By: #### U HCG, UAX, UMICAO ####[facility] [place] [address] Urine, yeast presence in sediment NOT REPORTED Normal NONE [facility] Comment on above: Performed By: #### U HCG, UAX, UMICAO ####[address] [place] [address] XR HIP 2-3 VW W PELVIS LEFTo n 01-15-2017 XR HIP 2-3 VW W PELVIS LEFT FINAL REPORTEXAM: XR HIP 2-3 VW W PELVIS LEFTHISTORY: Lower back pain, and pain over her left iliac crest TECHNIQUE: Single-view of the pelvis and two views hip are submitted for interpretation. PRIORS: None.FINDINGS: AP view of the pelvis with AP and frog-leg views of the left hip demonstrate normal alignment and mineralization. The osseous structures are intact without acute fracture or dislocation. The joint spaces are maintained. The soft tissues and bowel gas pattern are unremarkable. No radiodense foreign bodies are. IMPRESSION: Impression: 1. No acute abnormalities.Electr onically Signed By: LOY REECE on 01/14/2017 23:50Interpreted by:Loy ReeceSigned by:Loy Reece01/14/17Final result Normal [facility] XR LUMBAR SPINE STANDARDon 0 01-15-2017 Weight FINAL REPORTEXAM: XR LUMBAR SPINE STANDARDHISTORY: Lower back pain after lifting weights TECHNIQUE: Multiple views of the lumbar spine are submitted for interpretation. PRIORS: None.FINDINGS: Multiple views of the lumbar spine demonstrate normal alignment and mineralization. There is no acute fracture or dislocation. The lumbar vertebral body heights and disc spaces are maintained. The central canal is grossly patent. The pedicles and posterior elements are intact. The visualized soft tissues and bowel gas pattern unremarkable. No radiodense foreign bodies are seen.IMPRESSION: Impression: 1. No acute abnormalities.Electr onically Signed By: LOY REECE on 01/14/2017 23:48Interpreted by:Loy ReeceSigned by:Loy Reece01/14/17Final result Normal [facility] Vital Signs Date Time Vital Sign Value Performing Clinician Facility 06-22-2024 10:23-0500 Body mass index (BMI) [Ratio] 18.3 kg/m2 Daria Floro CNM Work Phone: [facility] 06-22-2024 10:23-0500 Body weight 49.9 kg Daria Floro CNM Work Phone: [facility] 06-22-2024 10:23-0500 Diastolic blood pressure 80 mm[Hg] Daria Floro CNM Work Phone: [facility] 06-22-2024 10:23-0500 Systolic blood pressure 114 mm[Hg] Daria Floro CNM Work Phone: [facility] 06-15-2024 09:28-0500 Body mass index (BMI) [Ratio] 17.97 kg/m2 Daria Floro CNM Work Phone: [facility] 06-15-2024 09:28-0500 Body weight 48.99 kg Daria Floro CNM Work Phone: [facility] 06-15-2024 09:28-0500 Diastolic blood pressure 78 mm[Hg] Daria Floro CNM Work Phone: [facility] 06-15-2024 09:28-0500 Systolic blood pressure 120 mm[Hg] Daria Floro CNM Work Phone: [facility] 04-27-2024 14:04-0500 Body mass index (BMI) [Ratio] 18.3 kg/m2 Daria Floro CNM Work Phone: [facility] 04-27-2024 14:04-0500 Body weight 49.9 kg Daria Floro CNM Work Phone: [facility] 04-27-2024 14:04-0500 Diastolic blood pressure 70 mm[Hg] Daria Floro CNM Work Phone: [facility] 04-27-2024 14:04-0500 Systolic blood pressure 110 mm[Hg] Daria Floro CNM Work Phone: [facility] 03-15-2024 13:09-0500 Body mass index (BMI) [Ratio] 16.97 kg/m2 Daria Floro CNM Work Phone: [facility] 03-15-2024 13:09-0500 Body weight 46.27 kg Daria Floro CNM Work Phone: [facility] 03-15-2024 13:09-0500 Diastolic blood pressure 70 mm[Hg] Daria Floro CNM Work Phone: [facility] 03-15-2024 13:09-0500 Systolic blood pressure 110 mm[Hg] Daria Floro CNM Work Phone: [facility] 01-13-2024 10:55-0400 Body mass index (BMI) [Ratio] 15.98 kg/m2 Daria Floro CNM Work Phone: [facility] 01-13-2024 10:55-0400 Body weight 43.55 kg Daria Floro CNM Work Phone: [facility] 01-13-2024 10:55-0400 Diastolic blood pressure 70 mm[Hg] Daria Floro CNM Work Phone: [facility] 01-13-2024 10:55-0400 Systolic blood pressure 110 mm[Hg] Daria Floro CNM Work Phone: [facility] 07-14-2022 14:54-0400 Body weight 42.[address] FELIX ZULUAGA . [facility] Comment on above: Performed By: #### DRUGRPD #### [facility] [address] [address] [address] Surjit Sánchez Encounters Encounter Date Encounter Type Care Provider Facility Start: 07-06-2024 End: 07-06-2024 ambulatory DARIA L FLORO Not Available Start: 06-22-2024 End: 06-22-2024 Bamboo flowsheet Daria L Floro CNM Work Phone: [facility] Start: 06-22-2024 End: 06-22-2024 Bamboo flowsheet Daria L Floro CNM Work Phone: [facility] Start: 06-22-2024 End: 06-22-2024 ambulatory DARIA L FLORO Not Available Start: 06-22-2024 End: 06-22-2024 Office outpatient visit 15 minutes Daria L Floro CNM Work Phone: [facility] Comment on above: History of chlamydia (Primary Dx); Encounter for supervision of other normal , third trimester; screening for streptococcus B; History of section Start: 06-15-2024 End: 06-15-2024 Bamboo flowsheet Daria L Floro CNM Work Phone: [facility] Start: 06-15-2024 End: 06-15-2024 Bamboo flowsheet Daria L Floro CNM Work Phone: [facility] Start: 06-15-2024 End: 06-15-2024 Office outpatient visit 15 minutes Daria L Floro CNM Work Phone: [facility] Comment on above: Poor growth af fecting management of mother in third trimester, single or unspecified fetus (Primary Dx); Encounter for supervision of other normal , third trimester; History of section Start: 06-15-2024 End: 06-15-2024 ambulatory DARIA L FLORO Not Available Start: 06-02-2024 End: 06-02-2024 ambulatory DARIA L FLORO Not Available Start: 06-02-2024 End: 06-30-2024 Telephone encounter Daria Daniela Doano CNM Work Phone: [facility] Start: 04-27-2024 End: 04-27-2024 Bamboo flowsheet Daria L Olimpiao CNM Work Phone: [facility] Start: 04-27-2024 End: 04-27-2024 Bamboo flowsheet Daria L Olimpiao CNM Work Phone: [facility] Start: 04-27-2024 End: 04-27-2024 ambulatory DARIA L FLORO Not Available Start: 04-27-2024 End: 04-27-2024 Office outpatient visit 15 minutes Daria Daniela Doano CNM Work Phone: [facility] Comment on above: Screening for diabet es mellitus; Screening for iron deficiency anemia; Yyyys-nan-qinah fetus, third trimester; Iron deficiency anemia, unspecified iron deficiency anemia type Start: 03-30-2024 End: 03-30-2024 Telephone encounter Daria Doano CNM Work Phone: [facility] Start: 03-15-2024 End: 03-16-2024 External Result Encounter Daria Daniela Doano CNM Work Phone: [facility] Unsolicited Start: 03-15-2024 End: 03-16-2024 External Result Encounter Daria Daniela Doano CNM Work Phone: [facility] Unsolicited Start: 03-15-2024 End: 03-15-2024 Office outpatient visit 15 minutes Daria L Floro CNM Work Phone: [facility] Comment on above: Encounter for superv ision of other normal , second trimester (Primary Dx); History of section; History of chlamydia Start: 03-07-2024 End: 03-07-2024 ambulatory DARIA L FLORO Not Available Start: 02-26-2024 End: 02-26-2024 Telephone encounter Daria L Floro CNM Work Phone: [facility] Start: 01-13-2024 End: 01-13-2024 Bamboo flowsheet Daria Doano CNM Work Phone: [facility] Start: 01-13-2024 End: 01-13-2024 Bamboo flowsheet Daria Doano CNM Work Phone: [facility] Start: 01-13-2024 End: 01-13-2024 Office outpatient visit 15 minutes Daria Daniela Doano CNM Work Phone: [facility] Comment on above: Encounter for superv ision of other normal , second trimester (Primary Dx); History of section Start: 01-13-2024 End: 01-13-2024 ambulatory DARIA Suarez OLIMPIAO Not Available Start: 12-15-2023 End: 12-15-2023 Initial care visit Daria Doano CNM Work Phone: [facility] Comment on above: GA: [id number] Start: 12-15-2023 End: 12-15-2023 ambulatory DARIA Daniela DOANO Not Available Start: 08-25-2023 End: 08-25-2023 ambulatory DARIA L FLORO Not Available Start: 08-26-[address] FELIX ZULUAGA . Fa cility:[facility] Start: 07-09-2022 End: 07-10-[address] FELIX ZULUAGA . Facility:[facility] Start: 06-30-2022 End: 07-01-[address] FELIX ZULUAGA . Facility:[facility] Start: 05-12-2022 End: 05-13-[address] FELIX ZULUAGA . Facility:[facility] Start: 04-28-2022 End: 04-29-[address] FELIX ZULUAGA . Facility:[facility] Start: 01-15-2017 End: 01-15-2017 [facility] Procedure Procedure Detail Performing Clinician Start: 04-27-2024 Blood count complete automated Daria Daniela Doano CNM Work Phone: Start: 04-27-2024 GLUCOSE, GESTATIONAL SCREEN (50G)-135 CUTOFF Daria Felipe CNDante Work Phone: Start: 03-15-2024 Iadna multiple organ isms direct probe tq Daria Felipe CNDante Work Phone: Start: 01-15-2017 Radex hip unilateral with pelvis 2-3 views GER EDUARDO Start: 01-15-2017 Radex spine lumbosac ral minimum 4 views GER EDUARDO Start: 01-15-2017 Microscopic urinalysis GER EDUARDO Start: 01-15-2017 , URINE IRACEM A EDUARDO Start: 01-15-2017 UA W/REFLEX CULTURE ELY CEMA EDUARDO H/O: section History of section Daria Felipe CNM Work Phone: H/O: section History of section Daria Felipe CNM Work Phone: H/O: section History of section Daria Felipe CNDante Work Phone: H/O: section History of section Daria Felipe CNM Work Phone: Plan of Treatment Date Care Activity Detail Author Start: 07-06-2024 End: 07-06-2024 Patient encounter procedure 07/06/2024 10:00 AM EDT Routine [facility] [address] [place] [address] Destinee DariaANGELIC Sigala [address] [place] [address] [facility] Start: 06-29-2024 End: 06-29-2024 Patient encounter procedure 06/29/2024 10:00 AM EDT Routine [facility] [address] [place] [address] Edvin Cantu MD [address] [place] [address] [facility] Start: 06-22-2024 End: 06-22-2025 STREPTOCCOUS, GROUP B CULTURE STREPTOCCOUS, GROUP B CULTURE Lab Routine screening for streptococcus B Expected: 06/22/2024 (Approximate), Expires: 06/22/2025 [facility] Work Phone: Comment on above: Expected: 06/22/2024 (Approximate), Expires: 06/22/2025 Start: 06-22-2024 End: 06-22-2024 Patient encounter procedure 06/22/2024 10:15 AM EST Routine [facility] [address] [place] [address] Daria Felipe CNM [address] [place], [place] [id number] [facility] Start: 06-15-2024 End: 06-15-2024 Patient encounter procedure [facility] Comment on above: Arrived Start: 06-15-2024 End: 06-15-2024 Professional / ancillary services management 06/15/2024 8:45 AM EST Ancillary Procedure [facility] [address] [id number] [facility] Start: 04-27-2024 End: 04-27-2025 US for US OB SCAN FOR GROWTH Imaging Routine [id number] fetus, third trimester Expected: 04/27/2024, Expires: 04/27/2025 [facility] Work Phone: Comment on above: Expected: 04/27/2024 , Expires: 04/27/2025 Start: 03-15-2024 End: 03-15-2025 Neisseria gonorrhoeae DNA [Presence] in Cervical mucus by JOVANNY with probe detection C. trachomatis / N. gonorrhoeae, DNA probe Pathology and Cytology Routine History of chlamydia Expected: 03/15/2024 (Approximate), Expires: 03/15/2025 [facility] Work Phone: Comment on above: Expected: 03/15/2024 (Approximate), Expires: 03/15/2025 Start: 02-10-2024 End: 02-10-2024 Patient encounter procedure 02/10/2024 11:30 AM EDT Routine [facility] [address] [place] [address] Destinee Daria Daniela, CNM [address] [place] [address] [facility] Start: 01-13-2024 End: 01-13-2024 Patient encounter procedure [facility] Comment on above: Arrived Start: 12-20-2023 Influenza vaccination Influenza Vacc ine (#1) [facility] Start: 12-15-2023 End: 12-14-2024 Bacteria identified in Urine by Culture Urine culture Microbiology Routine examination or test, positive result Expected: 12/15/2023 (Approximate), Expires: 12/14/2024 [facility] Comment on above: Expected: 12/15/2023 (Approximate), Expires: 12/14/2024 Start: 12-15-2023 End: 12-14-2024 DRUG TOX MONITORIGN 6 W/ CONF,URINE DRUG TOX MONITORIGN 6 W/ CONF,URINE Lab Routine examination or test, positive result Expected: 12/15/2023 (Approximate), Expires: 12/14/2024 [facility] Comment on above: Expected: 12/15/2023 (Approximate), Expires: 12/14/2024 Start: 12-15-2023 End: 12-14-2024 Neisseria gonorrhoeae DNA [Presence] in Cervical mucus by JOVANNY with probe detection C. trachomatis / N. gonorrhoeae, DNA probe Lab Routine examination or test, positive result Expected: 12/15/2023 (Approximate), Expires: 12/14/2024 [facility] Comment on above: Expected: 12/15/2023 (Approximate), Expires: 12/14/2024 Start: 12-15-2023 End: 12-14-2024 TSH W/REFLEX TO FT4 TSH W/REFLEX TO FT4 Lab Routine examination or test, positive result Expected: 12/15/2023 (Approximate), Expires: 12/14/[address] [facility] Comment on above: Expected: 12/15/2023 (Approximate), Expires: 12/14/2024 Start: 12-15-2023 End: 12-14-2024 URINALYSIS MICROSCOPIC URINALYSIS MICROSCOPIC Lab Routine examination or test, positive result Expected: 12/15/2023 (Approximate), Expires: 12/14/[address] [facility] Comment on above: Expected: 12/15/2023 (Approximate), Expires: 12/14/2024 ABO/Rh ABO/Rh Lab Routi ne examination or test, positive result Ordered: 12/15/[address] [facility] Comment on above: Ordered: 12/15/2023 Antibody screen Antibody screen Lab Routine examination or test, positive result Ordered: 12/15/[address] [facility] Comment on above: Ordered: 12/15/2023 CBC panel - Blood by Automated count CBC Lab Routine examination or test, positive result Ordered: 12/15/[address] [facility] Comment on above: Ordered: 12/15/2023 Hemoglobin A1c/Hemoglobin.total in Blood Hemoglobin A1c Lab Routine examination or test, positive result Ordered: 12/15/[address] [facility] Comment on above: Ordered: 12/15/2023 Hepatitis B virus surface Ag [Presence] in Serum or Plasma by Immunoassay Hepatitis B surface antigen Lab Routine examination or test, positive result Ordered: 12/15/[address] [facility] Work Phone: Comment on above: Ordered: 12/15/2023 Hepatitis C virus Ab [Presence] in Serum or Plasma by Immunoassay Hepatitis C antibody Lab Routine examination or test, positive result Ordered: 12/15/[address] [facility] Comment on above: Ordered: 12/15/2023 HIV-1/HIV-2 antigen/antibody combination immunoassay HIV-1 and HIV-2 antibodies Lab Routine examination or test, positive result Ordered: 12/15/[address] [facility] Comment on above: Ordered: 12/15/2023 Reagin Ab [Presence] in Serum by RPR RPR Lab Routine examination or test, positive result Ordered: 12/15/[address] [facility] Comment on above: Ordered: 12/15/2023 Rubella antibody, IgG Rubella an tibody, IgG Lab Routine examination or test, positive result Ordered: 12/15/2023 [facility] Comment on above: Ordered: 12/15/2023 Immunizations Immunization Date Immunization Notes Care Provider Bre hernandez 05-12-2013 influenza virus vacc ine, unspecified formulation Daria Doanflo STEPHEN Work Phone: [facility] Payers Date Payer Category Payer Medicaid [place] [id number] 2022 Medicaid [id number] 2016 Unknown [id number] 2002 Unknown [id number] 2002 Unknown [id number] 2.16.840.1.941716.3.579.2.593 2002 Unknown [id number] 2.16.840.1.518329.3.579.2.593 2002 Unknown [id number] 2.16.840.1.658008.3.579.2.593 2002 Unknown [id number] 2.16.840.1.489194.3.579.2.593 2002 Unknown [id number] 2.16.840.1.761173.3.579.2.1259 2002 Unknown [id number] 2.16.840.1.721361.3.579.2.1259 2002 Unknown [id number] 2.16.840.1.455407.3.579.2.1259 2002 Unknown [id number] 2.16.840.1.055588.3.579.2.9 2002 Unknown [id number] 2.16.840.1.923613.3.579.2.9 2002 Unknown [id number] 2.16.840.1.261625.3.579.2.1258 2002 Unknown [id number] 2.16.840.1.357888.3.579.2.9 2002 Unknown [id number] 2.16.840.1.672201.3.579.2.9 2002 Unknown [id number] 2.16.840.1.632468.3.579.2.9 2002 Unknown [id number] 2.16.840.1.320834.3.579.2.9 2002 Unknown [id number] 2.16.840.1.194916.3.579.2.1259 1959 Self-pay 1959 Unknown [id number] Unknown [id number] 2.16.840.1.876716.3.579.2.593 Social History Date Type Detail Facility Start: 10-02-2022 Tobacco smoking stat [facility] Never smoked tobacco [facility] Start: 10-02-2022 Tobacco use and exposure Smokeless t obacco non-user [facility] Start: 12-15-2023 Alcoholic beverage intake Life time non-drinker (finding) [facility] Start: 01-01-2023 End: 12-15-2023 History of Social function [facility] Start: 01-01-2023 End: 12-15-2023 Tobacco use panel [facility] The thought of harmi ng myself has occurred to me Never [facility] Start: 10-27-2023 [facility] Start: 2002 Sex assigned at Female [facility] Start: 09-09-2022 Gender identity Identifies as female gender (finding) [facility] Clinical Notes 12-15-2023 to 06-22-2024 Daria Felipe CNM - 06/22/2024 10:15 AM ESTTelephone Encounter - Ericka Huntley MA - 06/02/2024 2:14 PM ESTTelephone Encounter - Ericka Huntley MA - 06/02/2024 2:14 PM EST Note Date & Type Note Facility 06-22-2024 History of Presen t illness Narrative Subjective No chief complaint on file. Jolynn Bynum is a 23 y.o. at 36w1d with a working estimated date of delivery of 07/19/2024, by Last Menstrual Period who presents for a routine visit. She denies vaginal bleeding, leakage of fluid, decreased movements, or contractions. OB History Para Term AB Living 3 2 1 2 SAB IAB Ectopic Multiple Live Births 2 # Outcome Date GA Lbr Rob/2nd Weight Sex Type Anes PTL Lv 3 Current 2 Term 11/11/22 38w4d 6 lb 10 oz M CS-LTranv 1 Para 08/05/18 8 lb 2 oz CS-LTranv Complications: Failed induction Her is complicated by: Objective Physical Exam weight: 110 lb Expected Total Weight Gain: 27 lb-39 lb Pregravid BMI: 16.31 BP: 114/80 Urine protein-negative Urine glucose-negative Assessment/Plan Diagnoses and all orders for this visit: History of chlamydia Encounter for supervision of other normal , third trimester screening for streptococcus B - STREPTOCCOUS, GROUP B CULTURE; Future History of section Continue vitamin. Labs reviewed. GBS at 36 weeks Expected mode of delivery repeat section Follow up in 1 week for a routine visit. documented in this encounter [facility] 06-02-2024 Telephone encounter Note Form atting of this note might be different from the original. Pt scheduled [facility] 06-02-2024 Miscellaneous Notes Formattin g of this note might be different from the original. Pt scheduled Pt is calling to speak with Yuni or Venecia she is having bad tooth pain. And er will not give her anythind d/t how far along she is. documented in this encounter [facility] 06-02-2024 Telephone encounter Note Form atting of this note might be different from the original. Pt is calling to speak with Yuni or Venecia she is having bad tooth pain. And er will not give her anythind d/t how far along she is. [facility] 04-27-2024 History of Presen t illness Narrative Subjective No chief complaint on file. Jolynn Bynum is a 23 y.o. at 28w1d with a working estimated date of delivery of 07/19/2024, by Last Menstrual Period who presents for a routine visit. She denies vaginal bleeding, leakage of fluid, decreased movements, or contractions. OB History Para Term AB Living 3 2 1 2 SAB IAB Ectopic Multiple Live Births 2 # Outcome Date GA Lbr Rob/2nd Weight Sex Type Anes PTL Lv 3 Current 2 Term 11/11/22 38w4d 6 lb 10 oz M CS-LTranv 1 Para 08/05/18 8 lb 2 oz CS-LTranv Complications: Failed induction Her is complicated by: history of sections x2, + marijuana use, h/o e-coli and chlamydia this Objective Physical Exam weight: 110 lb Expected Total Weight Gain: 27 lb-39 lb Pregravid BMI: 16.31 BP: 110/70 Urine protein-negative Urine glucose-negative Assessment/Plan Diagnoses and all orders for this visit: Screening for diabetes mellitus - GLUCOSE, GESTATIONAL SCREEN (50G)-135 CUTOFF; Future Screening for iron deficiency anemia - CBC; Future Eftzx-bjf-njqrd fetus, third trimester - US OB SCAN FOR GROWTH; Future Iron deficiency anemia, unspecified iron deficiency anemia type - ferrous sulfate (Fe Tabs) 325 (65 Fe) MG EC tablet; Take 1 tablet (325 mg) by mouth in the morning and in the evening Do not crush, chew, or split. - docusate sodium (Colace) 100 MG capsule; Take 1 capsule (100 mg) by mouth in the morning and 1 capsule (100 mg) before bedtime. Continue vitamin. Labs reviewed. GBS taken at 36 weeks Expected mode of delivery repeat section Follow up in 4 weeks for a routine visit. documented in this encounter [facility] 03-30-2024 Telephone encounter Note Form atting of this note might be different from the original. Pt is requesting a callback to schedule her ob fu [phone] [facility] 03-30-2024 Miscellaneous Notes Formattin g of this note might be different from the original. Pt is requesting a callback to schedule her ob fu [phone] documented in this encounter [facility] 03-15-2024 History of Presen t illness Narrative Subjective No chief complaint on file. Jolynn Bynum is a 23 y.o. at 22w0d with a working estimated date of delivery of 07/19/2024, by Last Menstrual Period who presents for a routine visit. She denies vaginal bleeding, leakage of fluid, decreased movements, or contractions. OB History Para Term AB Living 3 2 1 2 SAB IAB Ectopic Multiple Live Births 2 # Outcome Date GA Lbr Rob/2nd Weight Sex Type Anes PTL Lv 3 Current 2 Term 11/11/22 38w4d 6 lb 10 oz M CS-LTranv 1 Para 08/05/18 8 lb 2 oz CS-LTranv Complications: Failed induction Her is complicated by + STIs this , social issues with boyfriend and father of the baby The following portions of the chart were reviewed this encounter and updated as appropriate: Objective Physical Exam Expected Total Weight Gain: 27 lb-39 lb Pregravid BMI: 16.31 Urine protein negative Urine glucose negative Labs: reviewed Imaging Assessment/Plan Diagnoses and all orders for this visit: Encounter for supervision of other normal , second trimester History of section Continue vitamin. Labs reviewed. A+ positive, not needed Rhogam not needed GTT at 28 weeks . Follow up in 4 weeks for a routine visit. documented in this encounter [facility] 03-15-2024 Miscellaneous Notes Addended by: ERICKA HUNTLEY on: 03/15/2024 01:22 PM Modules accepted: Orders documented in this encounter [facility] 03-15-2024 Note Addended by: ERICKA ADAME on: 03/15/2024 01:22 PM Modules accepted: Orders [facility] 03-15-2024 Note Addended by: ERICKA ADAME on: 03/15/2024 01:22 PM Modules accepted: Orders [facility] 02-26-2024 Telephone encounter Note Form atting of this note might be different from the original. Patient called and want to schedule an appt. She states she is . [facility] 02-26-2024 Miscellaneous Notes Formattin g of this note might be different from the original. Patient called and want to schedule an appt. She states she is . documented in this encounter [facility] 01-13-2024 History of Presen t illness Narrative Subjective No chief complaint on file. Jolynn Bynum is a 23 y.o. at 13w1d with a working estimated date of delivery of 07/19/2024, by Last Menstrual Period who presents for a routine visit. She denies vaginal bleeding, leakage of fluid, decreased movements, or contractions. OB History Para Term AB Living 3 2 1 2 SAB IAB Ectopic Multiple Live Births 2 # Outcome Date GA Lbr Rob/2nd Weight Sex Type Anes PTL Lv 3 Current 2 Term 11/11/22 38w4d 6 lb 10 oz M CS-LTranv 1 Para 08/05/18 8 lb 2 oz CS-LTranv Complications: Failed induction Her is complicated by: history of marijuana use, history of 2 sections, last one was 14 months ago The following portions of the chart were reviewed this encounter and updated as appropriate: Objective Physical Exam weight: 96 lb Expected Total Weight Gain: 27 lb-39 lb Pregravid BMI: 16.31 BP: 110/70 Urine protein-negative Urine glucose-negative Labs: reviewed Imaging Assessment/Plan Diagnoses and all orders for this visit: Encounter for supervision of other normal , second trimester History of section Continue vitamin. Labs reviewed. Rhogam not needed blood type A+ positive GTT at 28 weeks Follow up in 4 weeks for a routine visit. documented in this encounter [facility] 12-15-2023 History of Presen t illness Narrative Subjective Jolynn Bynum is a 23 y.o. at 9w0d with a working estimated date of delivery of 07/19/2024, by Last Menstrual Period who presents for an initial visit. This is unplanned. Patient Care Team: [facility] Provider MD Aislinn as PCP - General Daria Felipe CNM (Obstetrics and Gynecology) OB History Para Term AB Living 3 2 1 2 SAB IAB Ectopic Multiple Live Births 2 # Outcome Date GA Lbr Rob/2nd Weight Sex Type Anes PTL Lv 3 Current 2 Term 11/11/22 38w4d 6 lb 10 oz M CS-LTranv 1 Para 08/05/18 8 lb 2 oz CS-LTranv Complications: Failed induction Her is complicated by: history of sections x2, unplanned Patient referred by self Gynecology History Last Pap The following portions of the chart were reviewed this encounter and updated as appropriate: Review of Systems Objective Physical Exam Expected Total Weight Gain: Could not be calculated Pregravid BMI: Could not be calculated Urine protein Urine glucose Labs Assessment/Plan Diagnoses and all orders for this visit: examination or test, positive result - Vit-Fe Fumarate-FA (/Iron) 28-0.8 MG tablet; Take 1 tablet by mouth Daily - Hepatitis B surface antigen - Rubella antibody, IgG - CBC - Antibody screen - RPR - Hemoglobin A1c - TSH W/REFLEX TO FT4; Future - HIV-1 and HIV-2 antibodies - ABO/Rh - DRUG TOX MONITORIGN 6 W/ CONF,URINE; Future - Hepatitis C antibody - Urine culture; Future - URINALYSIS MICROSCOPIC; Future - C. trachomatis / N. gonorrhoeae, DNA probe; Future Blue education folder given. Patient educated on safe medication list. Genetic testing information given. Discussed the do's and don'ts in the blue folder. We discussed labs and what we draw and what we are testing for. Patient is also informed that we do a urine drug test. Patient also given office phone number and [facility] number to call in case of an emergency or after hours needs. PVU and all questions answered. We did discuss place of delivery. Patient should plan to go to [facility] for all services unless an emergency and they need to go to the closest ER. We can make other arrangements possibly if patient would like to deliver at another facility but I did explain I am now at [place] 100% of the time and would like to do all deliveries there. documented in this encounter [facility] Evaluation note Diagnosis Encounter for supervision of other normal , second trimester- Primary History of section Other postprocedural status History of chlamydia [facility] Diagnosis examination or test, positive result- Primary [facility]* Diagnosis Encounter for supervision of other normal , second trimester- Primary History of section Other postprocedural status [facility]* Diagnosis Screening for diabetes mellitus Screening for iron deficiency anemia Syldn-spc-ygvom fetus, third trimester Iron deficiency anemia, unspecified iron deficiency anemia type [facility]* Diagnosis Poor growth affecting management of mother in third trimester, single or unspecified fetus- Primary Encounter for supervision of other normal , third trimester History of section Other postprocedural status [facility]* Diagnosis History of chlamydia- Primary Encounter for supervision of other normal , third trimester screening for streptococcus B screening for Streptococcus B History of section Other postprocedural status [facility]* Daria Felipe CNM - 06/15/2024 10:30 AM EST Subjective No chief complaint on file. Jolynn Bynum is a 23 y.o. at 35w1d with a working estimated date of delivery of 07/19/2024,by Last Menstrual Period who presents for a routine visit. She denies vaginal bleeding, leakage of fluid, decreased movements, or contractions. OB History Para Term AB Living 3 2 1 2 SAB IAB Ectopic Multiple Live Births 2 # Outcome Date GA Lbr Rob/2nd Weight Sex Type Anes PTL Lv 3 Current 2 Term 11/11/22 38w4d 6 lb 10 oz M CS-LTranv 1 Para 08/05/18 8 lb 2 oz CS-LTranv Complications: Failed induction Her is complicated by: 2 previous C/S's, history of chlamydia w this , e-coli treated, anemia with , on iron, small for dates. Objective Physical Exam weight: 108 lb Expected Total Weight Gain: 27 lb-39 lb Pregravid BMI: 16.31 BP: 120/78 Prelim growth- 33w5d, NELI 14.17, Growth 14.5% Urine protein-negative Urine glucose-negative Assessment/Plan Diagnoses and all orders for this visit: Poor growth affecting management of mother in third trimester, single or unspecified fetus Encounter for supervision of other normal , third trimester History of section Continue vitamin. Labs reviewed. GBS at 36 weeks Return in 1 week for a routine visit. Patient will see Dr Cantu when I am out in two weeks. MA to get her an appt. [facility] Purpose Family History No Family History Records FoundNo Family History Records FoundNo Family History Records Found Advance Directives No Advanced Directives Records FoundNo Advanced Directives Records FoundNo Advanced Directives Records Found Additional Source Comments INFORMATION SOURCE (unrecogn ized section and content) DATE CREATED AUTHOR 10/14/2017 [facility] DATE CREATED AUTHOR AUTHOR'S ORGANIZ ATION 08/27/2022 [facility] DATE CREATED AUTHOR AUTHOR'S ORGANIZ ATION 07/10/2024 [facility] dical Specialists EPIC Care Teams (unrecognized sec tion and content) Shotweld Operator Relationship Specialty Start Date End Date Unallocated, Jeanie Lee MD [address] [place] [address] PCP - General 09/10/22 Daria Felipe CNM [address] [place] [address] Obstetrics and Gynecology 09/10/22 Shotweld Operator Relationship Specialty Start Date End Date Unallocated, Jeanie Lee MD [address] [facility] [place] [address] PCP - General 09/10/22 Daria Felipe CNM [address] [place] [address] Obstetrics and Gynecology 09/10/22 Shotweld Operator Relationship Specialty Start Date End Date Unallocated, Jeanie Lee MD [address] [facility] [place] [address] PCP - General 09/10/22 Daria Felipe CNM [address] [place] [address] Obstetrics and Gynecology 09/10/22 Shotweld Operator Relationship Specialty Start Date End Date Unallocated, Jeanie Lee MD [address] [facility] [place] [address] PCP - General 09/10/22 Daria Felipe CNM [address] [place] [address] Obstetrics and Gynecology 09/10/22 Shotweld Operator Relationship Specialty Start Date End Date Unallocated, Jeanie Lee MD [address] [facility] [address] PCP - General 09/10/22 Daria Felipe CNM [address] [place] [address] Obstetrics and Gynecology 09/10/22 Shotweld Operator Relationship Specialty Start Date End Date Unallocated, Jeanie Lee MD [address] [facility] [address] PCP - General 09/10/22 Daria Felipe CNM [address] [place] [address] Obstetrics and Gynecology 09/10/22 Shotweld Operator Relationship Specialty Start Date End Date Unallocated, Jeanie Lee MD [address] [place] [address] PCP - General 09/10/22 Daria Felipe CNM [address] [place] [address] Obstetrics and Gynecology 09/10/22 Shotweld Operator Relationship Specialty Start Date End Date Unallocated, Jeanie Lee MD [address] [place] [address] PCP - General 09/10/22 Daria Felipe CNM [address] [place] [address] Obstetrics and Gynecology 09/10/22 Shotweld Operator Relationship Specialty Start Date End Date Unallocated, Jeanie Lee MD [address] [facility] [address] PCP - General 09/10/22 Daria Felipe CNM [address] [place] [address] Obstetrics and Gynecology 09/10/22 Shotweld Operator Relationship Specialty Start Date End Date Unallocated, [place] [address] PCP - General 09/10/22 Daria Felipe CNM [address] [place] [address] Obstetrics and Gynecology 09/10/22 FOR RECORDS PERTAINING TO PATIENTS WHO ARE OR HAVE BEEN ENROLLED IN A CHEMICAL DEPENDENCY/SUBSTANCEABUSE PROGRAM, SOME INFORMATION MAY BE OMITTED. This clinical summary was aggregated from multiple sources. Caution should be exercised in using it in the provision of clinical care. This summary normalizes information from multiple sources, and as a consequence, information in this document may materially change the coding, format and clinical context of patient data. In addition, data may be omitted in some cases. CLINICAL DECISIONS SHOULD BE BASED ON THE PRIMARY CLINICAL RECORDS. [facility], [facility]. provides no warranty or guarantee of the accuracy or completeness of information in this document.
[2024-07-12] MEDS: LACTATED RINGER'S SOLUTION 1,000 ML 1000 ML IV ×2 (11:21→11:49)
[2024-07-12 11:33] LABS: Bilirubin Urine NEGATIVE (NEGATIVE); Blood Urine NEGATIVE (NEGATIVE); Clarity Urine CLEAR (CLEAR); Color Urine YELLOW (YELLOW); Glucose Urine UA NEGATIVE (NEGATIVE); Ketones Urine NEGATIVE (NEGATIVE); Leukocyte Esterase Urine TRACE (NEGATIVE); Nitrite Urine NEGATIVE (NEGATIVE); Protein Urine TRACE mg/dL (NEG/TRACE); Specific Gravity Urine 1.015 (1.005-1.025)
--- NOTE | 2024-07-12 11:43 | P.OBHP_ITS ---
OB - H&P: HPI History of Present Illness Chief complaint: C SECTION : 3 Para: 2 Gestational age based on last menstrual period: 39.0 History of Present Dating criteria: LMP confirmed by 1st trimester US care: good care Labs Blood type: A (+) positive Rubella: immune RPR/VDLR: nonreactive GBS status: negative HBsAG: negative Review of Systems ROS Status of ROS: 10 or more systems reviewed and unremarkable except as noted in history and below PFSH PFS Medical History (Updated 04/03/24 @ 15:51 by Rio Ordoñez MD) History of blood transfusion ?Z92.89 - Personal history of other medical treatment (ICD-10) delivery delivered ?O82 - Encounter for delivery without indication (ICD-10) Social History (Updated 11/11/22 @ 06:15 by Sanket Brasher) Within the past year, how often did you have a drink containing alcohol: never Within the past year, how often did you have six or more drinks on one occasion: never Score interpretation: A score less than 3 is consistent with normal alcohol consumption. Smoking status: Never smoker Non-prescribed substance use: denies use Highest level of school completed/degree received: 11th grade Are you now , , , , never or living with a partner: living with partner In a typical week, how many times do you talk on the telephone with family, friends, or neighbors: 3 or more times per week How often do you get together with friends or relatives: once per week How often do you attend samaritan or evangelical services: never Do you belong to any clubs or organizations such as samaritan groups unions, fraternal or athletic groups, or school groups: no Total score: 2 Score interpretation: A score of greater than or equal to 2 indicates the lowest level of social isolation. Little interest or pleasure in doing things: not at all Feeling down, depressed, or hopeless: not at all Feel stressed/tense/nervous/anxious/difficulty sleeping: not at all Do you think of yourself as: straight/heterosexual Gender Identity: female Meds Home Medications and Allergies Home Medications ?Medication ?Instructions ?Recorded ?Confirmed ?Type [id number] 1 mg 1 tab PO 10/13/22 History tablet ibuprofen 800 mg tablet 800 mg PO Q8H PRN pain 14 days #40 11/13/22 Rx tabs oxycodone-acetaminophen 5 mg-325 1 tab PO Q6H PRN pain 7 days #28 11/13/22 Rx mg tablet (Percocet) tabs ondansetron 4 mg disintegrating 4 mg PO Q8H PRN nausea and 04/03/24 Rx tablet vomiting 4 days #16 tabs Allergies Allergy/AdvReac Type Severity Reaction Status Date / Time No Known Drug Allergies Allergy Verified 04/03/24 13:22 Exam Constitutional Vital Signs, click to edit/add: Last Vital Signs Pulse 71 07/12/24 11:20 BP 110/65 07/12/24 11:20 Documenting provider has reviewed patient's vital signs: yes Common normals: no apparent distress Orientation/consciousness: Yes awake, Yes oriented to person, Yes oriented to place and Yes oriented to time HENMT Common normals: normocephalic Face and sinus: normal facial exam Eye Common normals: EOMs intact bilaterally Neck & C-Spine Common normals: no lymphadenopathy Lymph Lymphatic: no lymphadenopathy noted Respiratory Common normals: normal respiratory effort, no retractions, no use of accessory muscles, clear to auscultation bilaterally and percussion normal Effort & inspection: able to speak in complete sentences Cardio Common normals: no JVD, regular rate and regular rhythm Rate: regular rate Rhythm: regular rhythm GI Common normals: Normal to inspection, nondistended, normoactive bowel sounds present Palpation: soft OB/external & speculum: deferred Back & Pelvis Common normals: no CVA tenderness Extremity Common normals: normal to inspection Neuro Common normals: oriented x3 Psych Common normals: mental status grossly normal, thought process normal, cooperative, affect normal, speech normal, activity/motor behavior normal, denies hallucinations, denies homicidal ideation and denies suicidal ideation Attitude: calm Results Labs Labs: Urine 07/12/24 Range/Units 10:30 Urine Color Yellow (YELLOW) Urine Clarity Clear (CLEAR) Urine pH 7.0 (5.0-9.0) Ur Specific [place] 1.015 (1.005-1.025) Urine Protein Trace (NEG/TRACE) mg/dL Urine Glucose (UA) Negative (NEGATIVE) mg/dL OB - A/P Assessment and Plan (1) History of section: Plan Admit patient for repeat section Urinary Catheter Management Urinary Catheter Management Urethral: Cath placed during this visit: no Reason for continuing: surgical procedure
[2024-07-12 11:45] LABS: Basophils Percent Auto 0.3 % (0.2-2.0); Eosinophils Absolute Auto 0.1 10^3/uL (0.0-0.7); Eosinophils Percent Auto 0.6 % (0.9-7.0); Hematocrit 28.1 % (36.0-48.0); Hemoglobin 8.8 g/dL (12.0-16.0); Immature Granulocytes Abs Auto 0.11 10^3/uL (0.00-0.03); Immature Granulocytes Pct Auto 0.9 % (0.0-0.5); Lymphocytes Absolute Auto 2.6 10^3/uL (1.2-3.8); Lymphocytes Percent Auto 21.1 % (20.5-60.0); Mean Corpuscular HGB Conc 31.3 g/dL (29.9-35.2); Mean Corpuscular Hemoglobin 23.2 pg (26.7-34.0); Mean Corpuscular Volume 73.9 fL (81.0-99.0); Mean Platelet Volume 9.9 fL (9.5-13.5); Monocytes Absolute Auto 0.8 10^3/uL (0.3-0.8); Monocytes Percent Auto 6.5 % (1.7-12.0); Neutrophils Absolute Auto 8.7 10^3/uL (1.4-6.5); Neutrophils Percent Auto 70.6 % (43.0-75.0); Platelet Count 245 10^3/uL (150-450); White Blood Count 12.4 10^3/uL (4.0-11.0)
[2024-07-12 11:45] LABS: Amphetamine Screen Urine NEGATIVE (NEGATIVE); Barbiturates Screen Urine NEGATIVE (NEGATIVE); Benzodiazepines Screen Urine NEGATIVE (NEGATIVE); Buprenorphine Screen Urine NEGATIVE (NEGATIVE); Cannabinoid Screen Urine NEGATIVE (NEGATIVE); Cocaine Screen Urine NEGATIVE (NEGATIVE); Methadone Screen Urine NEGATIVE (NEGATIVE); Methamphetamines Screen Urine NEGATIVE (NEGATIVE); Opiate Screen Urine NEGATIVE (NEGATIVE); Oxycodone Screen Urine NEGATIVE (NEGATIVE); Phencyclidine Screen Urine NEGATIVE (NEGATIVE); Tricyclic Antidepressant Urine NEGATIVE (NEGATIVE)
[2024-07-12] MEDS: METOCLOPRAMIDE HCL 10 MG/2 ML VIAL IVP (11:48)
[2024-07-12] MEDS: FAMOTIDINE/PF 20 MG/2 ML VIAL IV (11:48)
[2024-07-12] MEDS: CITRIC ACID/SODIUM CITRATE 30 ML SOLUTION ORACIT SHOHL'S SOLN PO (11:48)
[2024-07-12 11:54] LABS: Bacteria Urine SMALL #/HPF (NONE SEEN); Mucus Urine TRACE (NONE SEEN); RBC Urine 0-2 #/HPF (0-2); Squamous Epithelial Cell Urine MODERATE #/LPF (NONE/RARE)
[2024-07-12 11:55] LABS: Cast Seen? NONE SEEN #/LPF (NONE SEEN); Crystals Seen? None Seen #/HPF (None Seen); Urine Culture Indicated YES-LC
[2024-07-12] MEDS: CEFAZOLIN SODIUM/DEXTROSE,ISO 2 GM/50 ML PIGGYBACK IV ×2 (12:36→19:25)
--- NOTE | 2024-07-12 13:39 | PM.ONB ---
Brief Operative Note Date of procedure: 07/12/24 Pre-op diagnosis general: iup at 39wks, previous c/s Post-op diagnosis: same as pre-op Procedure: NAME OF PROCEDURE: [ section ] PROCEDURE: Patient was taken back to the Operating Room where she was given a spinal anesthesia with Duramorph without difficulty. She was prepped and draped in the normal sterile fashion. A Pfannenstiel skin incision was then made 2 cm above the symphysis pubis and carried down to underlying rectus fascia using a Bovie. The fascia was incised in the midline and extended laterally using Adames scissors. Two Oneyda clamps were placed on the superior aspect of the fascia and dissected off the underlying rectus muscles. The same was performed on the inferior aspect as well. The muscles were then in the midline. Peritoneum was identified and entered bluntly. The peritoneum was then extended superiorly and inferiorly with good visualization of the bladder. The bladder blade was inserted. A low transverse incision was made on the patient's uterus and extended laterally digitally. The was then delivered atraumatically after the bladder blade was removed in the cephalic position. The cord was clamped and cut. Cord blood was obtained. The was handed off to awaiting team. The patient's placenta was spontaneously delivered. The uterus was then exteriorized. The uterus was cleared of all clots and debris. The bladder blade was reinserted. The patient's uterine incision was closed using #0 Vicryl in a running lock fashion. Excellent hemostasis was assured. The uterus was then returned to the patient's abdomen. The patient's abdomen was copiously irrigated using warm saline. Peritoneal gutters were cleared of all clots and debris. Again excellent hemostasis was assured. The patient's peritoneum was closed using 3-0 Vicryl in a running fashion. The patient's fascia was closed using #0 Vicryl in a running fashion. The patient's skin was closed using 4-0 Vicryl subcuticularly. The patient tolerated the procedure well. Sponge, lap, and needle counts were correct x2. The patient was taken to the Recovery Room in stable condition. Anesthesia: spinal Surgeon: Gilbert Alexander Fire Management Specialist: DARIA ESCOBEDO Estimated blood loss (mL): 575 Pathology: other (placenta) Condition: stable Disposition: PACU Urinary Catheter Management Urinary Catheter Management Urethral: Cath placed during this visit: no
--- NOTE | 2024-07-12 13:40 | PM.OBPRCCS ---
Procedure Pre-op/Post-op diagnoses: Pre-Op/Post-Op Diagnoses Operation Date: 07/12/24 12:00 <No data on this case meets the specified criteria> Procedure: Procedures Operation Date: 07/12/24 12:00 Actual Procedure Side Surgeon p Not Applicable Gilbert Alexander DO Pet Supplies Salesperson: DARIA ESCOBEDO Estimated blood loss (mL): 575 Disposition: floor Anesthesia type: Spinal
--- NOTE | 2024-07-12 14:17 | P.EN_ITS ---
Event Note Event Note: Physician Credentialing Specialist Note: I first assisted Dr Alexander with a repeat section. I assisted him as directed. I independently closed the incision with 3-0 vicryl without difficulty. Hemostasis noted at the completion of the case and patient tolerated the procedure well.
[2024-07-12] MEDS: OXYTOCIN/0.9 % SODIUM CHLORIDE 20 UNITS/1,000 ML PLAST..BAG 125 UNIT IV (14:35)
[2024-07-12 17:53] LABS: Basophils Percent Auto 0.1 % (0.2-2.0); Immature Granulocytes Abs Auto 0.15 10^3/uL (0.00-0.03); Immature Granulocytes Pct Auto 0.7 % (0.0-0.5); Lymphocytes Percent Auto 4.7 % (20.5-60.0); Mean Corpuscular HGB Conc 31.6 g/dL (29.9-35.2); Mean Corpuscular Hemoglobin 23.4 pg (26.7-34.0); Monocytes Absolute Auto 0.3 10^3/uL (0.3-0.8); Monocytes Percent Auto 1.3 % (1.7-12.0); Neutrophils Absolute Auto 19.7 10^3/uL (1.4-6.5); Neutrophils Percent Auto 93.2 % (43.0-75.0); Platelet Count 189 10^3/uL (150-450); Red Blood Count 2.65 10^6/uL (4.20-5.40); Red Cell Distribution Width 15.1 % (11.0-15.0); White Blood Count 21.1 10^3/uL (4.0-11.0)
[2024-07-12 17:56] LABS: Hematocrit 19.6 % (36.0-48.0); Hemoglobin 6.2 g/dL (12.0-16.0)
[2024-07-12] MEDS: 0.9 % SODIUM CHLORIDE 250 ML 10 ML IV (18:13)
[2024-07-12 18:29] LABS: Alanine Aminotransferase 7 U/L (14-59); Albumin Globulin Ratio 0.6; Albumin Level 1.8 g/dL (3.4-5.0); Alkaline Phosphatase 134 U/L (46-116); Anion Gap 10.9; Aspartate Amino Transferase 18 U/L (15-37); BUN Creatinine Ratio 7.2; Bilirubin Total 0.8 mg/dL (0.2-1.0); Calcium 7.4 mg/dL (8.5-10.1); Carbon Dioxide 23.5 mmol/L (21.0-32.0); Chloride 105 mmol/L (98-107); Estimated GFR (African America >60 (>=60 mL/min/1.73m^2); Estimated GFR (Non-African Ame >60 (>=60 mL/min/1.73m^2); Globulin 2.8 g/dL; Glucose 157 mg/dL (74-106); Potassium 3.4 mmol/L (3.5-5.1); Sodium 136 mmol/L (136-145); Total Protein 4.6 g/dL (6.4-8.2)
[2024-07-12] MEDS: LACTATED RINGER'S SOLUTION 1,000 ML 125 ML IV (18:35)
[2024-07-12] MEDS: KETOROLAC TROMETHAMINE 30 MG/ML VIAL IVP (19:25)
[2024-07-12] MEDS: ACETAMINOPHEN 500 MG TABLET 1000 MG PO (22:28)
[2024-07-13] VITALS (8 sets, daily range): BP systolic 106–120; BP diastolic 56–73; PULSE 68–92; TEMP 36.6–36.7; O2SAT 97
[2024-07-13 00:14] LABS: Basophils Percent Auto 0.1 % (0.2-2.0); Eosinophils Absolute Auto 0.1 10^3/uL (0.0-0.7); Eosinophils Percent Auto 0.2 % (0.9-7.0); Hematocrit 26.8 % (36.0-48.0); Immature Granulocytes Abs Auto 0.21 10^3/uL (0.00-0.03); Immature Granulocytes Pct Auto 0.9 % (0.0-0.5); Lymphocytes Absolute Auto 1.3 10^3/uL (1.2-3.8); Lymphocytes Percent Auto 5.9 % (20.5-60.0); Mean Corpuscular HGB Conc 33.6 g/dL (29.9-35.2); Mean Corpuscular Hemoglobin 26.5 pg (26.7-34.0); Mean Corpuscular Volume 79.1 fL (81.0-99.0); Mean Platelet Volume 10.1 fL (9.5-13.5); Monocytes Absolute Auto 1.1 10^3/uL (0.3-0.8); Monocytes Percent Auto 4.7 % (1.7-12.0); Neutrophils Absolute Auto 19.8 10^3/uL (1.4-6.5); Neutrophils Percent Auto 88.2 % (43.0-75.0); Platelet Count 183 10^3/uL (150-450); Red Blood Count 3.39 10^6/uL (4.20-5.40); Red Cell Distribution Width 16.2 % (11.0-15.0); White Blood Count 22.5 10^3/uL (4.0-11.0)
[2024-07-13] MEDS: KETOROLAC TROMETHAMINE 30 MG/ML VIAL IVP ×2 (00:52→08:09)
[2024-07-13] MEDS: ENOXAPARIN SODIUM 40 MG/0.4 ML SYRINGE SUBQ (00:52)
[2024-07-13] MEDS: ACETAMINOPHEN 500 MG TABLET 1000 MG PO ×3 (06:30→22:23)
[2024-07-13 06:45] LABS: Hematocrit 25.7 % (36.0-48.0); Hemoglobin 8.7 g/dL (12.0-16.0); Mean Corpuscular HGB Conc 33.9 g/dL (29.9-35.2); Mean Corpuscular Hemoglobin 26.4 pg (26.7-34.0); Mean Corpuscular Volume 77.9 fL (81.0-99.0); Mean Platelet Volume 10.1 fL (9.5-13.5); Platelet Count 189 10^3/uL (150-450); Red Cell Distribution Width 15.7 % (11.0-15.0); White Blood Count 23.6 10^3/uL (4.0-11.0)
[2024-07-13 07:10] LABS: Lymphocytes Absolute Manual 1.41 10^3/uL (1.20-3.80); Monocytes Absolute Manual 0.94 10^3/uL (0.30-0.80); Segmented Neut Absolute Manual 21.24 10^3/uL (1.4-6.5)
[2024-07-13] MEDS: DOCUSATE SODIUM 100 MG CAPSULE PO ×2 (14:21→22:23)
[2024-07-13] MEDS: IBUPROFEN 400 MG TABLET 800 MG PO ×2 (15:55→22:22)
[2024-07-14] MEDS: ENOXAPARIN SODIUM 40 MG/0.4 ML SYRINGE SUBQ (02:58)
[2024-07-14 06:23] LABS: Basophils Absolute Auto 0.1 10^3/uL (0.0-0.1); Basophils Percent Auto 0.3 % (0.2-2.0); Eosinophils Absolute Auto 0.2 10^3/uL (0.0-0.7); Eosinophils Percent Auto 1.1 % (0.9-7.0); Hematocrit 24.3 % (36.0-48.0); Immature Granulocytes Abs Auto 0.23 10^3/uL (0.00-0.03); Immature Granulocytes Pct Auto 1.4 % (0.0-0.5); Lymphocytes Absolute Auto 2.7 10^3/uL (1.2-3.8); Lymphocytes Percent Auto 16.1 % (20.5-60.0); Mean Corpuscular HGB Conc 32.9 g/dL (29.9-35.2); Mean Corpuscular Hemoglobin 25.7 pg (26.7-34.0); Mean Corpuscular Volume 78.1 fL (81.0-99.0); Mean Platelet Volume 9.7 fL (9.5-13.5); Monocytes Percent Auto 5.8 % (1.7-12.0); Neutrophils Absolute Auto 12.7 10^3/uL (1.4-6.5); Neutrophils Percent Auto 75.3 % (43.0-75.0); Platelet Count 165 10^3/uL (150-450); Red Blood Count 3.11 10^6/uL (4.20-5.40); Red Cell Distribution Width 16.2 % (11.0-15.0); White Blood Count 16.8 10^3/uL (4.0-11.0)
[2024-07-14] MEDS: ACETAMINOPHEN 500 MG TABLET 1000 MG PO (06:49)
[2024-07-14] MEDS: IBUPROFEN 400 MG TABLET 800 MG PO (06:49)
[2024-07-14 08:15] VITALS: TEMP 36.7
--- NOTE | 2024-07-14 08:20 | PM.OBPN ---
OB - PN: Subj Subjective Patient comments: no complaints and pain well controlled [place] status: doing well Exam Constitutional Vital Signs, click to edit/add: Last Vital Signs Temp 98.1 F 07/13/24 13:00 Pulse 70 07/13/24 22:23 Resp 16 07/13/24 17:30 BP 110/56 07/13/24 22:23 Pulse Ox 97 07/13/24 17:30 O2 Del Method Room Air 07/13/24 22:54 Documenting provider has reviewed patient's vital signs: yes Common normals: no apparent distress Respiratory Common normals: normal respiratory effort and clear to auscultation bilaterally Cardio Common normals: regular rate and regular rhythm GI Common normals: Normal to inspection, nondistended, normoactive bowel sounds present Extremity Common normals: no calf tenderness Results Labs Labs: Short CBC 07/14/24 Range/Units 06:13 WBC 16.8 H (4.0-11.0) 10^3/uL Hgb 8.0 L (12.0-16.0) g/dL Hct 24.3 L (36.0-48.0) % Plt Count 165 (150-450) 10^3/uL Urinary Catheter Management Urinary Catheter Management Urethral: Cath placed during this visit: yes, but has since been removed by the nurse Insertion date: 07/12/24 Insertion time: 12:50 Removal date: 07/13/24 Removal time: 06:30 OB - PN: A/P Assessment and Plan (1) History of section: Plan - day: 1 Plan: routine postop care, discharge home and other (fu 1wk) Time Spent with Patient Time: Total time spent is greater than 50% in coordination of care (as documented) at patient's floor/unit and/or counseling patient: Total time spent with greater than 50% in coordination of care (as documented) at patient's floor/unit and/or counseling patient: less than 15 minutes
[2024-07-14 08:25] VITALS: BP 108/56; PULSE 87
--- NOTE | 2024-07-14 08:50 | PC.NURSE ---
NO fundal checks per provider.
== END 2024-07-14 10:35 | disposition home or self-care (01) | DRG 540 ==
PROVIDERS: Obstetrics & Gynecology; Admitting Provider Midwife; Visit Provider Midwife
PROC: 10D00Z1 Extraction of Products of Conception, Low, Open Approach (ICD-10-PCS; CPT 59514; principal; 2024-07-12 12:00)
DX: O34.211 Maternal care for low transverse scar from previous cesarean delivery (principal); Z3A.39 39 weeks gestation of pregnancy; Z37.0 Single live birth; O90.81 Anemia of the puerperium; D62 Acute posthemorrhagic anemia
CPT/HCPCS: 36415; 36430; 64488; 80053; 80307; 81001; 85007; 85025; 85027; 86850; 86900; 86901; 87086; 88307; 94667; 94668; J0131; J0665; J0690; J1100; J1650; J1885; J2274; J2371; J2405; J2590; J2765; J3490; P9016